=== PATIENT | female | born 1955 | race Caucasian/White ===

== ENCOUNTER 2023-05-21 08:53 | Outpatient (REF) | payer MEDICARE, SELFPAY ==
--- NOTE | ~2023-05-21 | XR_ITS ---
EXAMINATION: XR CERVICAL SPINE CLINICAL INFORMATION: Cervical radiculopathy COMPARISON: None available. TECHNIQUE: 4 views of the cervical spine including flexion and extension lateral views were obtained. FINDINGS: There is straightening of cervical lordosis with narrowing of C4-C5, C5-C6, C6-C7 intervertebral disc spaces and marginal spurring. There is no instability on flexion and extension views. There is uncovertebral osteophytosis more prominent in the level of C5-C6. Soft tissues unremarkable. XR/XR cervical spine 4V IMPRESSION: Multilevel degenerative changes in cervical spine without evidence of instability.
== END 2023-05-21 08:54 | disposition home or self-care (01) ==
LOC: HO.HOSX 08:53
PROVIDERS: PCP Nurse Practitioner Family; Visit Provider Neurological Surgery
DX: M54.12 Radiculopathy, cervical region (principal)
CPT/HCPCS: 72050; 99212

== ENCOUNTER 2023-05-21 08:53 | Outpatient (AMB) | payer MEDICARE, SELFPAY ==
--- NOTE | 2023-05-21 09:22 | A.SPINEOV_ITS ---
Intake Intake Visit Reasons: Neck pain Intake Note: Mrs. Gipson is here today c/o neck pain s/p fall. MRI done @ [facility]. [employer] Est[employer] Required: No Assessment & Plan Assessment & Plan (1) Cervical radiculopathy: Code(s): M54.12 - Radiculopathy, cervical region Plan Dear Dr. Mcelroy, Thank you for referring Amanda to our office today. She is a pleasant 68-year-old female who comes in today with a chief complaint of left-sided posterior neck pain with radiation into the left upper extremity. She states that the inciting incident of this pain occurred roughly 1 month ago when she had which she refers to as a ?mini seizures/mini stroke? during which she attempted to stand up from a seated position after sitting on her couch for a prolonged period of time and ?blacked out hit a nearby table and fell on the ground. She states that this is not uncommon for her and that she is followed by Neurology for this issue. When describing her pain/radiation of symptoms it is difficult for her to delineate exactly where the pain/radiation occurs. It seems that she has fairly diffuse radiation of pain in the proximal half of her left upper extremity. In addition, she has tingling in her hands for many years, predominantly affecting the left 1st 3 phalanges. She states that she does not want to go to physical therapy and is not interested in having injections at this time. PMH: High blood pressure, ulcerative colitis, many strokes/seizures, osteoarthritis, breast cancer with R sided tumor resection, hysterectomy, cholecystectomy, unspecified knee surgery. Social hx: Patient does not smoke, reports no substance use. Medications: Alendronate, fluticasone, cetirizine, Humira, lisinopril, clopi dogrel, levothyroxine, duloxetine, pantoprazole, Depakote. Allergies: Aspirin, penicillin, latex. Physical exam: Mobility / function: Patient ambulates well, can rise from a seated position without difficulty. Sensation: Grossly intact. CN: II-XII grossly intact. Strength Testing Upper Extremities: - Deltoid 5/5 right 5/5 left - Biceps 5/5 right 5/5 left - Triceps 5/5 right 5/5 left - Wrist Ext 5/5 right 5/5 left - Wrist Flex 5/5 right 5/5 left - Hand performing arts technicians 5/5 right 5/5 left - Interossei 5/5 right 5/5 left Patient is able to elicit full strength but has to push through pain to get to 5/5 strength on L side. Strength Testing Lower Extremities: - Hip flexion 5/5 right 5/5 left - Knee extension 5/5 right 5/5 left - Dorsiflexion 5/5 right 5/5 left - Plantar flex 5/5 right 5/5 left - EHL 5/5 right 5/5 left Reflexes: - Biceps Right - 2+ Left - 2+ - Triceps Right - 2+ Left - 2+ - Patellar Right - 2+ Left - 2+ - Achilles Right - 2+ Left - 2+ - Plantar Right - 2+ Left - 2+ (-) Lhermitte's (-) Spurling's (-) Babinski (-) Donohue?s sign (-) Clonus Imaging review: MRI from February 2023 performed [facility]: The patient has diffuse degenerative disc disease of the cervical spine. She has severe foraminal narrowing most severe on the left side at C5-6, but this is also present at a lesser degree at C3-4 and C6-7. X-rays of the cervical spine were also ordered to evaluate for any instability, none was seen on imaging. Impression: Amanda is a pleasant 68-year-old female comes in today with acute onset neck and left upper extremity pain after a fall 1 month ago. She states she has had persistent pain on the left posterior aspect of her neck and down her left upper extremity terminating in the 1st 3 digits of the left hand. On imaging review it seems that she has bone spurs that are impinging the left- sided foramen of the exiting nerve roots at the above discussed levels. She was seen alongside Dr. Oakes who offered her a C5-6 and C6-7 ACDF based on her clinical symptoms. We discussed her current medication regimen and she was advised to stop her Humira and may restart it after surgery (half life roughly 15 days, surgery roughly 45 days out, will need at least 3 half lives before surgery). We also discussed stopping her anticoagulation medication at least 3 days before surgery, she is encouraged to discuss this with her primary care physician neurologist before stopping due to her history of TIAs/seizures. Amanda was given risk and benefits of surgery including but not limited to infection, hematoma, nerve injury, durotomy, weakness, trachea/esophagus injury, persistent pain, difficulty swallowing/speaking as well as the option to continue with conservative treatment and patient wishes to proceed with surgery. She is aware they should stop all NSAIDs 7 days prior to surgery. All questions were answered to the best of our ability. If there is anything about this patients medical history that we have overlooked or concerns you have about us proceeding with surgery we would appreciate any input you can offer. Thank you for allowing us to care for your patient. The total time spent with this visit with this patient was 60 minutes reviewing history, physical exam, MRI cervical spine imaging review, and implementation of treatment plan or further diagnostic testing Pravin Oakes MD,PhD [facility] Orders: Orders XR cervical spine 4V Today M54.12 - Radiculopathy, cervical region Coding Level of Care Code Est Pt Level 5 (96142) Diagnoses Cervical radiculopathy M54.12
== END 2023-05-21 10:17 | disposition home or self-care (01) ==
PROVIDERS: PCP Nurse Practitioner Family; Visit Provider Neurological Surgery
DX: M54.12 Radiculopathy, cervical region (principal)
CPT/HCPCS: 99215

== ENCOUNTER 2023-07-10 08:27 | Day surgery (SDC) | payer MEDICARE, SELFPAY ==
--- NOTE | 2023-06-27 | ECG_ITS ---
Test Reason : preop Blood Pressure : / mmHG Vent. Rate : 078 BPM Atrial Rate : 078 BPM P-R Int : 178 ms QRS Dur : 072 ms QT Int : 390 ms P-R-T Axes : 025 017 042 degrees QTc Int : 444 ms Normal sinus rhythm Normal ECG No previous ECGs available Referred By: Britany Salinas Electronically Signed By:MEAGHAN SERRANO MD
[2023-06-27 12:19] VITALS: BP 111/56; PULSE 92; RESP 20; O2SAT 98; BMI 34.4
--- NOTE | 2023-06-27 12:34 | HO.ANESPROP2 ---
Documented by User: Britany Salinas NP 07/08/23 14:21 HPI - Anesthesia Eval Consult details Narrative: 68yo F for C5-6,C6-7 Ant Cerv Discectomy w/ fusion, 07/10/23 No recent illness No CP/SOB Plavix for hx TIA. OK to hold per prescriber. Seizures . Last 02/2023 with med change. Per neuro note, seizure vs migraine vs syncope. EEG 05/2022 negative. Per pt, able to feel pre-seizure coming and prevent. Chronic sinus congestion with PND. OTC allergy Chronic low Na. Last 06/23/23 @ 131. Follows renal, last seen 05/27/23. Unclear etiology without taking pt off diuretics, but because Na always >130, follow labs without changes. S/P R mastectomy PMFSH Active Problems Active Problems: All Active Problems (Updated 06/27/23 @ 12:10 by Colleen Hwang RN) Cervical radiculopathy (Acute) Past Medical History Medical History (Updated 06/27/23 @ 12:10 by Colleen Hwang RN) Migraine Uterine cancer Fibromyalgia Depression Hyponatremia Breast cancer, right Osteoarthritis Seizures TIA (transient ischemic attack) Ulcerative colitis HTN (hypertension) Family History Family history of problems with anesthesia: No Surgical History Surgical History (Updated 06/27/23 @ 12:12 by Colleen Hwang RN) Hx of right mastectomy Hx of knee surgery Hx of cholecystectomy Hx of hysterectomy History of lumpectomy of right breast History of Problems with Anesthesia: No Social History Household Members Other:: none-neighbors & friend assist if needed Are you a primary primary care sales representative to a significant other at home: No Do you presently have visiting nurse or other home services: No Patient Tobacco Use Status: Former Tobacco user Quit Date: 1991 Tobacco use type: Cigarette Meds Allergies Allergy/AdvReac Type Severity Reaction Status Date / Time aspirin Allergy Intermediate Vomiting Verified 06/27/23 12:13 Latex, Natural Rubber Allergy Intermediate Itching Verified 06/27/23 12:13 Penicillins [PCN] Allergy Intermediate Rash/fever Verified 06/27/23 12:13 Sulfa (Sulfonamide Allergy Intermediate Itching/sheeba Verified 06/27/23 12:13 Antibiotics) sea Home Medications Medication Instructions Recorded Confirmed Last Taken Type alendronate 70 mg tablet 70 mg PO QWEEK 06/26/23 06/27/23 07/07/23 History clopidogrel 75 mg tablet 75 mg PO QAM 06/26/23 06/27/23 07/05/23 History cyanocobalamin (vitamin B-12) 100 100 mcg PO QAM 06/26/23 06/27/23 07/09/23 History mcg tablet (Vitamin B-12) duloxetine 60 mg capsule,delayed 60 mg PO QAM 06/26/23 06/27/23 07/10/23 History release levothyroxine 88 mcg tablet 88 mcg PO QAM 06/26/23 06/27/23 07/10/23 History lisinopril 30 mg tablet 30 mg PO QAM 06/26/23 06/27/23 07/09/23 History lysine 500 mg tablet (L-Lysine) 500 mg PO QAM 06/26/23 06/27/23 07/09/23 History multivitamin 1 tab PO QAM 06/26/23 06/27/23 07/09/23 History mupirocin 2 % topical ointment 1 appl topical TID 06/26/23 06/27/23 07/09/23 History pantoprazole 40 mg tablet,delayed 40 mg PO QAM 06/26/23 06/27/23 07/10/23 History release triamcinolone acetonide 0.1 % 1 appl topical BID 06/26/23 06/27/23 07/09/23 History topical cream calcium carbonate 600 mg-vitamin 1 tab PO QAM 06/27/23 06/27/23 07/09/23 History D3 5 mcg (200 unit) tablet cetirizine 10 mg tablet 10 mg PO QAM 06/27/23 06/27/23 07/09/23 History divalproex 250 mg tablet,extended 250 mg PO BEDTIME 06/27/23 06/27/23 07/09/23 History release 24 hr triamterene 37.5 0.5 tab PO QAM 06/27/23 06/27/23 07/09/23 History mg-hydrochlorothiazide 25 mg tablet Exam Exam Date and Time: June 27, 2023 1234 Height,Weight and Vital Signs: Height 5 ft 1 in Weight 82.554 kg Last Vital Signs Pulse 92 06/27/23 12:19 Resp 20 06/27/23 12:19 BP 111/56 L 06/27/23 12:19 Pulse Ox 98 06/27/23 12:19 O2 Del Method Room Air 06/27/23 12:19 Pertinent Lab Results Pertinent Lab Results: From outside facility: CMP 06/23/23 Na 131 (L) K 4.6 Cl 94 (L) Bicarb 28 Bun 13 Creat 0.9 Liver profile WNL CBC 06/23/23 all WNL Narrative Narrative: EKG 06/2023 Vent. Rate : 078 BPM Atrial Rate : 078 BPM P-R Int : 178 ms QRS Dur : 072 ms QT Int : 390 ms P-R-T Axes : 025 017 042 degrees QTc Int : 444 ms Normal sinus rhythm Normal ECG No previous ECGs available Airway Mallampati Class: III TM Dist: >3cm Neck ROM: Limited Denture: Upper Loose/Missing/Broken Teeth: No (bottom teeth intact) Heart: RRR Lungs: CTAB Assessment and Plan Assessment Anesthesia Assessment: Anesthesia Plan Discussed and PAT Visit Final Anesthetic Review Family History of Problems with Anesthesia: No History of Problems with Anesthesia: No Documented by User: Murray Escobar MD 07/17/23 16:49 PMFSH Past Medical History Medical History (Updated 06/27/23 @ 12:10 by Colleen Hwang RN) Migraine Uterine cancer Fibromyalgia Depression Hyponatremia Breast cancer, right Osteoarthritis Seizures TIA (transient ischemic attack) Ulcerative colitis HTN (hypertension) Surgical History Surgical History (Updated 06/27/23 @ 12:12 by Colleen Hwang RN) Hx of right mastectomy Hx of knee surgery Hx of cholecystectomy Hx of hysterectomy History of lumpectomy of right breast Social History Household Members Other:: none-neighbors & friend assist if needed Are you a primary primary care sales representative to a significant other at home: No Do you presently have visiting nurse or other home services: No Patient Tobacco Use Status: Former Tobacco user Quit Date: 1991 Tobacco use type: Cigarette Meds Allergies Allergy/AdvReac Type Severity Reaction Status Date / Time aspirin Allergy Intermediate Vomiting Verified 06/27/23 12:13 Latex, Natural Rubber Allergy Intermediate Itching Verified 06/27/23 12:13 Penicillins [PCN] Allergy Intermediate Rash/fever Verified 06/27/23 12:13 Sulfa (Sulfonamide Allergy Intermediate Itching/sheeba Verified 06/27/23 12:13 Antibiotics) sea Home Medications Medication Instructions Recorded Confirmed Last Taken Type alendronate 70 mg tablet 70 mg PO QWEEK 06/26/23 06/27/23 07/07/23 History clopidogrel 75 mg tablet 75 mg PO QAM 06/26/23 06/27/23 07/05/23 History cyanocobalamin (vitamin B-12) 100 100 mcg PO QAM 06/26/23 06/27/23 07/09/23 History mcg tablet (Vitamin B-12) duloxetine 60 mg capsule,delayed 60 mg PO QAM 06/26/23 06/27/23 07/10/23 History release levothyroxine 88 mcg tablet 88 mcg PO QAM 06/26/23 06/27/23 07/10/23 History lisinopril 30 mg tablet 30 mg PO QAM 06/26/23 06/27/23 07/09/23 History lysine 500 mg tablet (L-Lysine) 500 mg PO QAM 06/26/23 06/27/23 07/09/23 History multivitamin 1 tab PO QAM 06/26/23 06/27/23 07/09/23 History mupirocin 2 % topical ointment 1 appl topical TID 06/26/23 06/27/23 07/09/23 History pantoprazole 40 mg tablet,delayed 40 mg PO QAM 06/26/23 06/27/23 07/10/23 History release triamcinolone acetonide 0.1 % 1 appl topical BID 06/26/23 06/27/23 07/09/23 History topical cream calcium carbonate 600 mg-vitamin 1 tab PO QAM 06/27/23 06/27/23 07/09/23 History D3 5 mcg (200 unit) tablet cetirizine 10 mg tablet 10 mg PO QAM 06/27/23 06/27/23 07/09/23 History divalproex 250 mg tablet,extended 250 mg PO BEDTIME 06/27/23 06/27/23 07/09/23 History release 24 hr triamterene 37.5 0.5 tab PO QAM 06/27/23 06/27/23 07/09/23 History mg-hydrochlorothiazide 25 mg tablet Exam Airway Loose/Missing/Broken Teeth: Yes Assessment and Plan Assessment Anesthesia Assessment: Chart Reviewed Final Anesthetic Review NPO: Yes ASA Class: IV Final Preanesthetic Review: Meds/Allgs Chart Reviewed, Consent Obtained/Reviewed and Anes Risks/Benef Reviewed Patient Risk: High Procedure Risk: Intermediate Anesthetic Plan Anesthetic Plan: GA and Agree w/ Assess. and Plan Disposition: Standard PACU
[2023-07-10] VITALS (14 sets, daily range): BP systolic 101–130; BP diastolic 51–67; PULSE 88–98; RESP 14–20; TEMP 36.1–36.8; O2SAT 94–100; BMI 33.7
--- NOTE | ~2023-07-10 | FL_ITS ---
EXAMINATION: XR FLUOROSCOPY WITH IMAGES CLINICAL INFORMATION: C5 through C7 anterior cervical disc with fusion. COMPARISON: None available. TECHNIQUE: Fluoroscopy Supervised By: Dr. Geovanny Oakes. Fluoroscopy Time: 0.1 minute. Cumulative Dose: 2.98 mGy. DAP: 0.698 Gycm2. Images: 2. FINDINGS: New surgical hardware from [facility] at C5-C6 and C6-C7. FL/FL guidance in OR IMPRESSION: Fluoroscopy guidance for cervical spine surgery.
--- NOTE | 2023-07-10 07:02 | MHC.SHP ---
Pre-Procedural Eval Section A Date of Service: 07/10/23 Section B Chief Complaint: Radiculopathy, cervical region Allergies: Allergies Allergy/AdvReac Type Severity Reaction Status Date / Time aspirin Allergy Intermediate Vomiting Verified 06/27/23 12:13 Latex, Natural Rubber Allergy Intermediate Itching Verified 06/27/23 12:13 Penicillins [PCN] Allergy Intermediate Rash/fever Verified 06/27/23 12:13 Sulfa (Sulfonamide Allergy Intermediate Itching/sheeba Verified 06/27/23 12:13 Antibiotics) sea Review of Systems Sugical H&P ROS: Negative: Constitution, Cardiovascular, Respiratory, Neurological, Psychiatric, Hem-Onc, Allergic/Immunologic, Gastrointestinal, Genitourinary, Musculoskeletal, Integumentary, Endocrine and Eyes/Ears/Nose/Throat Exam Surgical H&P Exam: Not Evaluated: HEENT, Not Evaluated: Heart, Not Evaluated: Lungs, Not Evaluated: Extremities, Not Evaluated: Abdomen, Not Evaluated: Skin and Not Evaluated: Neurological Plan Diagnosis/Plan: Unchanged I have reviewed the history and physical and performed a pertinent physical examination on my patient. No changes have occurred unless specified. Plan remains the same, C5-6, C6-7 ACDF Time Spent With Patient Time: Total time managing care of this patient today __10__ minutes.
[2023-07-10] MEDS: methocarbamoL 750 MG TABLET PO (09:10)
[2023-07-10] MEDS: Lactated Ringers 1,000 ML 100 ML IVCONT (09:10)
[2023-07-10] MEDS: Gabapentin 300 MG CAPSULE PO (09:11)
[2023-07-10] MEDS: vancomycin HCL 1,500 MG in 0.9 % Sodium Chloride 500 ML 333.33 MG IV (09:28)
[2023-07-10] MEDS: Acetaminophen 1,000 MG/100 ML PIGGYBACK 400 MG IV (11:00)
--- NOTE | 2023-07-10 12:46 | PM.DS ---
DS: Providers Provider Date of Service: 07/10/23 Primary care physician: Unknown Physician DS: Summary Time Attestation Discharge coordination time: Less than 30 minutes Quality: Safe Use of Opioids Does Pt have an Active Cancer Diagnosis on the Problem List?: No Quality: Stroke Does the patient have a stroke diagnosis?: No Physical Exam Vital Signs: Vital Signs: Last Vital Signs Temp 98.3 F 07/10/23 08:50 Pulse 88 07/10/23 08:50 Resp 20 07/10/23 08:50 BP 117/61 07/10/23 08:50 Pulse Ox 97 07/10/23 08:50 O2 Del Method Room Air 07/10/23 08:50 BMI result Body Mass Index 33.7 DS: Data Data Completed and Pending Labs on day of discharge: Laboratory Results - last 24 hr 07/10/23 10:11 Blood Type A Positive Antibody Screen NEGATIVE Discharge Plan Discharge Patient Disposition: Home, Self-Care Referrals: Physician,Unknown J [Primary Care Provider] - 1 Week Discharge Medications: New oxycodone 5 mg tablet 5 mg PO Q8H PRN (Reason: severe pain (scale score 7-10)) Qty: 30 0RF Rx Instructions: Partial Fill upon patient request. Continued multivitamin Tablet 1 tab PO QAM cyanocobalamin (vitamin B-12) [Vitamin B-12] 100 mcg Tablet 100 mcg PO QAM alendronate 70 mg tablet 70 mg PO QWEEK tramadol 50 mg Tablet 50 mg PO BID PRN (Reason: Pain) triamcinolone acetonide 0.1 % cream 1 appl topical BID levothyroxine 88 mcg tablet 88 mcg PO QAM pantoprazole 40 mg tablet,delayed release (DR/EC) 40 mg PO QAM lisinopril 30 mg tablet 30 mg PO QAM mupirocin 2 % ointment 1 appl topical TID lysine [L-Lysine] 500 mg Tablet 500 mg PO QAM duloxetine 60 mg capsule,delayed release(DR/EC) 60 mg PO QAM cetirizine 10 mg tablet 10 mg PO QAM calcium carbonate-vitamin D3 600 mg-5 mcg (200 unit) Tablet 1 tab PO QAM divalproex 250 mg tablet extended release 24 hr 250 mg PO BEDTIME triamterene-hydrochlorothiazid 37.5-25 mg tablet 0.5 tab PO QAM Held clopidogrel 75 mg tablet 75 mg PO QAM Hold Instructions: Resume on 07/15/23. Discharge Orders: Discharge Order (Routine); Ordered 07/10/23 Ordered By: Pravin Mckeon Diet: Advance to usual diet Activity on Discharge: As tolerated Activity Restrictions/Additional Instructions: After your spinal surgery we ask you to observe the following restrictions/guidelines: Activity: With lumbar fusion surgery it is normal to have days in the first couple of weeks where you have increased leg pain. This usually lasts 1-2 days and self resolves with the continuation of medication. Attempt to stay mobile and continue activity as tolerated. It is normal to feel some discomfort as you increase your activity, but that will improve with time. We ask you avoid heavy lifting or activities that cause pain. As a general rule, 8lbs is a safe limit for lifting right after surgery. Walk as much as you feel comfortable but not to exhaustion. You will feel extra tired the first few days after surgery. Stay well hydrated. It is OK to walk up and down stairs You may return to driving when you are off narcotics (such as vicodin, oxycodone, dilaudid, etc), and you are back to normal functional capacity. If you have any concerns please check with office before driving. Return to work is specific to each patient and each surgery, so please speak with your doctor/PA at first follow up. Please bring paperwork such as FMLA at that time if you need it filled out. Medications: It is recommended that you take Tylenol 500 mg every 4 hours for the 1st week postoperatively, alongside ibuprofen 600 mg every 8 hours. We will also be prescribing gabapentin 300 mg to be taken every 8 hours for the 1st month postoperatively. We will give you a short supply of narcotics after surgery (usually one weeks worth). Please use this for breakthrough pain that is refractory to the Tylenol ibuprofen and gabapentin. If you need more please call the office but do not use more than prescribed. You will need to give our office 48 hours notice if you need narcotics refilled and we do not fill narcotics on weekends or evenings. If you are on a narcotic, it is a good idea to take a stool softener such as colace or senna to avoid constipation If you take blood thinner such as aspirin, Plavix, Coumadin, Effient, Eliquis etc for conditions such as Afib, DVT, Pulmonary embolus, coronary disease, stents etc please speak with your surgeon about specific details as to when you can resume these medications. You can resume NSAIDs on post op day 1 (eg: Motrin, Naproxen, etc). Follow up: Please call the office, , after surgery to arrange a 3 week follow up for wound check. Wound Care: You may remove your dressing on the first day after surgery. You may leave open to air. Please do not remove the steri strips underneath. they will fall off on their own in one week. IT IS NORMAL FOR THE WOUND TO OOZE OR BE BLOODY FOR A FEW DAYS AFTER SURGERY. IF THIS HAPPENS JUST PLACE NEW DRESSING OVER IT TO AVOID STAINING CLOTHES. You may shower on post op day # 1 We ask that you do not let the water soak the wound. If it does get wet, just towel dry lightly. Please do not scrub your incision or place any type of chemical/ointment on the wound. No tub baths, pools or jacuzzis for one month. If you have any leaking or redness from your wound, or fevers, please call office
--- NOTE | 2023-07-10 12:50 | P.OP_ITS ---
Operative Note Operative Note Date of Service: 07/10/23 Narrative: Preoperative Diagnosis: neck pain and left cervical radiculopathy Procedure: C5-6, C6-X5Kjeluckr discectomy, arthrodesis and implantation cage ; C5-C7 anterior instrumentation ; local autograft; microscope Informed Consent was obtained for this operation. I have explained the nature, purpose and benefits of the operation. I have discussed the risks and benefit of the operation including possible complications or adverse events with patient/family. Alternative(s) were discussed with the patient with their relative benefits and risks as well as the consequences of not accepting the operation were included in obtaining consent. Surgeon: RAFFAELE LI MD, PHD Procedure Assisted By: MORAIMA Mendoza Description of Procedure: This 68 female is suffering from neck pain left-sided arm pain. MRI shows mu ltilevel degenerative disc disease C5-6 and C6-7 with foraminal stenosis at these levels. The procedure complications were explained. The patient was consented. The patient was brought to the operating room and endotracheally intubated. The patient was put in supine position with slight extension of the neck. Prep and drape was done followed by timeout. A mid cervical incision was made followed by opening of the platysma. The prevertebral fascia was reached following the natural planes while the physician periodicals library assistant provided manual retraction. The prevertebral fascia was opened to expose the disc space. A spinal needle was placed in the disk space to confirm the correct level with xray. The longus colli muscles were released bilaterally and a self retaining retractor was inserted. Two large anterior osteophytes were resected from C5-6 and C6-7 saved for autograft. An initial diskectomy was done of C5-6 and C6- C7.Two [place] pins were placed in the C5-6 vertebral bodies and distraction was given over the interspace. The discectomy was completed toward the posterior annulus of the disc. The microscope was brought in. The remainder of the discectomy was completed. The posterior ligament was opened and resected to expose the underlying dura. Osteophytes were resected from the body of C5 and C6 and saved for autograft. Bilateral foraminotomies were done. Significant foraminal stenosis was present for the left C6 foramen. The endplates were prepared after which a 6 mm cage filled with autograft was inserted into the disc space. A separate attached plate was locked down with 2 x 14 mm screws as anterior instrumentation. then attention was turned to the C6-C7 disc space. Distraction was given over the interspace. The diskectomy was completed after which the PLL was opened and resected to expose the underlying dura. A bilateral foraminotomy was done with removal of several osteophyte compressing the exiting nerve roots. The endplates were prepared after which a 6 mm cage filled with autograft was inserted into the disc space. A separate attached plate was locked down with 2 x 14 mm screws as anterior instrumentation. Final x-rays in AP and lateral projection showed a satisfactory position of the implants and anterior instrumentation. The physician periodicals library assistant took over. The [place] pin was removed. Hemostasis was done. He closed the incision in 2 layers with a 3-0 Vicryl. Steri-Strips used to approximate incision. An OpSite with Tegaderm was used to cover the incision. All sponge and needle counts were correct. Patient was extubated and transported in stable is to recovery room. Anesthesia: General Estimated Blood Loss (ml): 10 mL Duration of Surgery: 90 minutes Postoperative Plan: Discharge home Complications: None
[2023-07-10] MEDS: fentaNYL citrate/PF 100 MCG/2 ML VIAL 25 MCG IVPUSH ×2 (13:05→13:15)
--- NOTE | 2023-07-10 13:46 | PHA.MEDREC ---
Pharmacy Consult ? Medication Reconciliation Pharmacy has completed the medication reconciliation.pharmacy has reviewed med rec done by nursing
--- NOTE | 2023-07-10 17:28 | PC.NURSE ---
Pts ride cannot be here for another 45 mins to an hour. Meal tray ordered.
== END 2023-07-10 18:23 | disposition home or self-care (01) ==
PROVIDERS: Visit Provider Neurological Surgery
PROC: (CPT 22551; principal; 2023-07-10 10:30)
DX: M54.12 Radiculopathy, cervical region (principal); M50.322 Other cervical disc degeneration at C5-C6 level; M50.323 Other cervical disc degeneration at C6-C7 level; R20.2 Paresthesia of skin; R56.9 Unspecified convulsions; Z91.81 History of falling; I10 Essential (primary) hypertension; Z85.3 Personal history of malignant neoplasm of breast; Z79.620 Long term (current) use of immunosuppressive biologic; Z79.899 Other long term (current) drug therapy; Z88.0 Allergy status to penicillin; Z88.8 Allergy status to other drugs, medicaments and biological substances; Z91.040 Latex allergy status; Z98.890 Other specified postprocedural states; Z87.891 Personal history of nicotine dependence
CPT/HCPCS: 22551; 22552; 22853; 20936; 22845; 86850; 86900; 86901; 93005; C1713; J0131; J1100; J1170; J2250; J2704; J3010; J3371

== ENCOUNTER → 2023-07-10 08:27 | Outpatient (BNV) | payer MEDICARE, SELFPAY | PROVIDERS: Visit Provider Physician Assistant | DX: M54.12 Radiculopathy, cervical region (principal) | CPT/HCPCS: 20936; 22551; 22552; 22845; 22853; 99499 ==

== ENCOUNTER 2023-08-01 12:32 | Outpatient (AMB) | payer MEDICARE, SELFPAY ==
--- NOTE | 2023-08-01 13:18 | A.SPINEOV_ITS ---
Intake Intake Visit Reasons: 1st post op Allergies aspirin Allergy (Intermediate, Verified 06/27/23 12:13) Vomiting Latex, Natural Rubber Allergy (Intermediate, Verified 06/27/23 12:13) Itching Penicillins [PCN] Allergy (Intermediate, Verified 06/27/23 12:13) Rash/fever Sulfa (Sulfonamide Antibiotics) Allergy (Intermediate, Verified 06/27/23 12:13) Itching/nausea Assessment & Plan Assessment & Plan (1) Cervical radiculopathy: Code(s): M54.12 - Radiculopathy, cervical region Plan Procedure: C5-6, C6-C7 ACDF Amanda comes in today for her 1st postoperative visit. She reports she is very satisfied with the surgery and feels much better than she did preoperatively. The patient reports she is up walking around and completing the majority of her ADLs. She does still reports some posterior neck pain/twinging in her neck, but this is expected as a result of postoperative inflammation. She reports that she still takes acetaminophen daily. No neurological deficits. Patient is able to ambulate well, rises from a seated position without difficulty. Incision sites are closed, well healing, with no signs of drainage. We will follow-up with the patient in 6 weeks for his 2nd postoperative visit. At that time we will get x-rays to review with the patient. Pravin Oakes MD,PhD [facility] Coding Level of Care Code Global (66887) Diagnoses Cervical radiculopathy M54.12
== END 2023-08-01 13:18 | disposition home or self-care (01) ==
PROVIDERS: Visit Provider Physician Assistant
DX: M54.12 Radiculopathy, cervical region (principal)
CPT/HCPCS: 99024

== ENCOUNTER 2023-08-01 12:32 | Outpatient (REF) | payer MEDICARE, SELFPAY | END 2023-08-01 12:33 | disposition home or self-care (01) | LOC: HO.HOSX 12:32 | PROVIDERS: Visit Provider Physician Assistant | DX: M54.12 Radiculopathy, cervical region (principal) | CPT/HCPCS: 99212 ==

== ENCOUNTER 2023-09-12 12:41 | Outpatient (REF) | payer MEDICARE, SELFPAY ==
--- NOTE | ~2023-09-12 | XR_ITS ---
EXAMINATION: XR CERVICAL SPINE CLINICAL INFORMATION: Cervical radiculopathy COMPARISON: 05/21/2023 TECHNIQUE: 4 views of the cervical spine were obtained inclusive of flexion and extension views. FINDINGS: There is straightening/minimal reversal of normal cervical lordosis. Interval C5-C6 and C6-C7 surgical stabilizing hardware appears appropriately positioned. Multilevel degenerative changes including C4-C5 disc space narrowing with anterior bridging osteophyte and facet hypertrophic changes. Odontoid is obscured. No prevertebral soft tissue swelling seen. On neutral view, trace anterolisthesis C3 on C4 is unchanged on flexion and extension views. Calcification adjacent to the C7 spinous process. Lung apices are clear. XR/XR cervical spine 4V IMPRESSION: Cervical lordotic straightening/minimal reversal. Interval C5-C6 and C6-C7 surgical hardware. Persistent C4-C5 disc space narrowing. Flexion-extension views as described.
== END 2023-09-12 12:42 | disposition home or self-care (01) ==
LOC: HO.HOSX 12:41
PROVIDERS: Visit Provider Physician Assistant
DX: M54.12 Radiculopathy, cervical region (principal); Z09 Encounter for follow-up examination after completed treatment for conditions other than malignant neoplasm
CPT/HCPCS: 72050; 99212

== ENCOUNTER 2023-09-12 12:43 | Outpatient (AMB) | payer MEDICARE, SELFPAY ==
--- NOTE | 2023-09-12 13:01 | A.OFFVIS_ITS ---
Intake Intake Visit Reasons: 2nd post op with xrays Intake Note: Pt here for her 2nd post op with Xrays Employee Development Specialist Required: No Allergies aspirin Allergy (Intermediate, Verified 06/27/23 12:13) Vomiting Latex, Natural Rubber Allergy (Intermediate, Verified 06/27/23 12:13) Itching Penicillins [PCN] Allergy (Intermediate, Verified 06/27/23 12:13) Rash/fever Sulfa (Sulfonamide Antibiotics) Allergy (Intermediate, Verified 06/27/23 12:13) Itching/nausea PFSH Medical History (Updated 06/27/23 @ 12:10 by Colleen Hwang RN) Migraine Uterine cancer Fibromyalgia Depression Hyponatremia Breast cancer, right Osteoarthritis Seizures TIA (transient ischemic attack) Ulcerative colitis HTN (hypertension) Surgical History (Updated 06/27/23 @ 12:12 by Colleen Hwang RN) Hx of right mastectomy Hx of knee surgery Hx of cholecystectomy Hx of hysterectomy History of lumpectomy of right breast Social History Household Members Other:: none-neighbors & friend assist if needed Are you a primary manager medicare to a significant other at home: No Do you presently have visiting nurse or other home services: No Comment: uses cane for balance if needed Patient Tobacco Use Status: Former Tobacco user Quit Date: 1991 Tobacco use type: Cigarette Assessment & Plan Assessment & Plan (1) Cervical radiculopathy: Code(s): M54.12 - Radiculopathy, cervical region Plan Procedure: C5-6 & C6-7 ACDF Amanda comes in today for her 2nd postoperative visit. She reports continued resolution of symptoms. She states that she has not fallen at all since surger y. She also almost never gets episodes of dizziness. She states she is continuing to heal well, and has been back to her activities of daily living. She reports yesterday she was playing bingo, was able to come back home and do some chores including washing the dishes, and had no significant concerning symptoms or issues. This is reassuring for continued symptom resolution and healing course. We reviewed her cervical x-ray and noted stable placement of cage and instrumentation at C5-6 and C6-7. No neurological deficits. Patient is able to ambulate well, rises from a seated position without difficulty. Incision site is closed, well healing and beginning to flat out into the skin folds. There is no need for continued routine follow-up with the patient, I recommend she continue to follow-up with her neurologist Dr. Zheng. Pravin Oakes MD,PhD [facility] Coding Level of Care Code Global (02239) Diagnoses Cervical radiculopathy M54.12
== END 2023-09-12 13:15 | disposition home or self-care (01) ==
PROVIDERS: PCP Nurse Practitioner Family; Visit Provider Physician Assistant
DX: M54.12 Radiculopathy, cervical region (principal)
CPT/HCPCS: 99024

== ENCOUNTER 2025-06-20 13:58 | Outpatient (AMB) | payer MEDICARE, SELFPAY ==
--- NOTE | 2025-06-20 14:24 | MHC.OFFVIS ---
Intake Visit Reasons: TIA (cardiology) HPI Comments Details: 60 yo RH woman with chronic depression, FRANCHESKA on CPAP, cervical spine surgery in 2022, and seizure disorder. She used to see Dr. Zheng and said that he has done multiple tests including brain scans and EEG. Her present complaints were headaches that were sporadic almost always on the right side in frontal area, sharp, and lasting for about half an hour. She was treating headaches with Tylenol. She used to have seizures which made her fall down and pass out. She said that since starting in the medicine she was not having those type of seizures but minor were probably happening which were making her unsteady. She complain of change in her speech stating that her speech was affected and this was affected after she had multiple ?mini strokes?. She has moved from [place] to this area recently. 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) use of antithrombotics/antiplatelets HTN (hypertension) Chronic sinusitis Acute seborrheic dermatitis Mild eczema Weakness Ulcerative colitis Tricuspid valve disorder Transient ischemic attack (TIA) FRANCHESKA (obstructive sleep apnea) Overweight Osteoporosis Chronic tension type headache Malignant neoplasm of breast (female) Major depression Magnetic resonance imaging of brain abnormal Ischemic stroke Impairment of balance Hypothyroidism (acquired) 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 Complain of fatigue, sleep problems and dizziness and malaise. HEENT:? Complain of hearing loss. Cardiovascular:?No chest pain, palpitations, orthopnea, PND, or leg swelling. Respiratory:?No cough, shortness of breath, wheezing, or hemoptysis. Gastrointestinal:? He is complaining of frequent urination and incontinence. Genitourinary:?No dysuria, frequency, incontinence, or hematuria. Musculoskeletal:? She is complaining of neck pain. Neurological:? She is complaining of difficulty speaking, memory problems, and weakness. Psychiatric:? Complain of anxiety and depression Endocrine:?No heat/cold intolerance, polydipsia, polyuria, or hair/skin changes. Hematologic/Lymphatic:?No easy bruising, bleeding, or lymphadenopathy. Integumentary (Skin):?No rash, lesions, itching, or color changes. Allergic/Immunologic:?No seasonal allergies, hives, or recurrent infections. Physical Exam Neuro Other: Mental Status: She is alert and awake with somewhat fast in an speech. Spontaneity and fluency is not diminished. Comprehension is intact. She is able to provide her previous history without any confusion. Cranial Nerves: CN II: Visual villegas full to confrontation, visual acuity intact. CN III, IV, : Pupils equal, round, reactive to light and accommodation. Extraocular movements are normal. CN V: Facial sensation is normal. CN VII: Facial movements symmetrical. CN VIII: Hearing intact to bedside conversation is normal. CN IX, X: Palate elevates symmetrically. CN XI: Shoulder shrug and head turn symmetrical. CN XII: Tongue midline without atrophy or fasciculations. Motor: Deep tendon reflexes are 1+. Gait is cautious. Extrapyramidal: Full facial expressions and blinking. No rigidity. Movements are appropriate with no tremor or abnormality. Speech: Somewhat fast, dysphasic Assessment & Plan Assessment & Plan (1) Seizure disorder: Code(s): G40.909 - Epilepsy, unspecified, not intractable, without status epilepticus Category: Medical (2) Migraine without aura: Code(s): G43.009 - Migraine without aura, not intractable, without status migrainosus Category: Medical Qualifiers: Intractability: not intractable Status migrainosus presence: without status migrainosus Qualified Code(s): G43.009 - Migraine without aura, not intractable, without status migrainosus Plan 70 years old woman who was here with complain of headaches, seizures, and difficulty speaking. She said that she had numerous ?mini strokes? and investigations by Dr. Zheng in [place]. Previous records were not available. As far as headaches were concerned, there were probably migraine. She was taking Depakote for seizure disorder and reported milder symptoms. As far as her speech was concerned, I did not see heart signs of aphasia or dysarthria. This type of speech sometime is noted in behavioral disorder. She was advised to bring CTA of her previous scans and an EEG was ordered. Orders: Orders EEG Routine Today G40.909 - Epilepsy, unspecified, not intractable, without status epilepticus, G43.009 - Migraine without aura, not intractable, without status migrainosus Coding Level of Care Code New Pt Level 5 (78300) Diagnoses Seizure disorder G40.909 Migraine without aura and without status migrainosus, not intractable G43.009 Intractability: not intractable Status migrainosus presence: without status migrainosus
== END 2025-06-20 15:18 | disposition home or self-care (01) ==
LOC: HO.HSM 13:59
PROVIDERS: PCP Nurse Practitioner Family; Visit Provider Psychiatry & Neurology Neurology
DX: G40.909 Epilepsy, unspecified, not intractable, without status epilepticus (principal); G43.009 Migraine without aura, not intractable, without status migrainosus
CPT/HCPCS: 99204

== ENCOUNTER → 2025-06-20 13:58 | Outpatient (BNVA) | payer MEDICARE, SELFPAY | PROVIDERS: PCP Nurse Practitioner Family; Visit Provider Psychiatry & Neurology Neurology | DX: G40.909 Epilepsy, unspecified, not intractable, without status epilepticus (principal); G43.009 Migraine without aura, not intractable, without status migrainosus; G47.33 Obstructive sleep apnea (adult) (pediatric); Z99.89 Dependence on other enabling machines and devices; F32.A Depression, unspecified | CPT/HCPCS: 99202 ==

== ENCOUNTER 2025-06-27 14:01 | Outpatient (AMB) | payer MEDICARE, SELFPAY ==
--- NOTE | 2025-06-27 14:05 | A.OFFVIS_ITS ---
Intake Visit Reasons: Ischemic stroke Allergies aspirin Allergy (Intermediate, Verified 06/21/25 12:59) Vomiting Latex, Natural Rubber Allergy (Intermediate, Verified 06/21/25 12:59) Itching Penicillins (PCN) Allergy (Intermediate, Verified 06/21/25 12:59) Rash/fever Sulfa (Sulfonamide Antibiotics) Allergy (Intermediate, Verified 06/21/25 12:59) Itching/nausea HPI Comments Details: 70 years old woman with h/o multilevel mid-cervical spondylytic stenosis that was treated by [facility] by Dr. Oakes, who was here with complain of headaches, seizures, and difficulty speaking. She said that she had numerous ?mini strokes? and investigations by Dr. Zheng in [place]. Previous records were not available. As far as headaches were concerned, there were probably migraine. She was taking Depakote for seizure disorder and reported milder symptoms. As far as her speech was concerned, I did not see heart signs of aphasia or dysarthria. This type of speech sometime is noted in behavioral disorder. She was advised to bring CTA of her previous scans and an EEG was ordered. [facility] Medical History (Updated 06/21/25 @ 12:59 by More Mary) Chronic bilateral low back pain without sciatica Primary osteoarthritis of left knee Fibromyalgia Impaired glucose tolerance SOB (shortness of breath) Chronic hyponatremia Decreased hearing of both ears assisted (current) use of antithrombotics/antiplatelets HTN (hypertension) Chronic sinusitis Acute seborrheic dermatitis Mild eczema Weakness Ulcerative colitis Tricuspid valve disorder Transient ischemic attack (TIA) FRANCHESKA (obstructive sleep apnea) Overweight Osteoporosis Chronic tension type headache Malignant neoplasm of breast (female) Major depression Magnetic resonance imaging of brain abnormal Ischemic stroke Impairment of balance Hypothyroidism (acquired) 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 Cataract Ataxia Migraine Uterine cancer Fibromyalgia Depression Hyponatremia Breast cancer, right Osteoarthritis Seizures TIA (transient ischemic attack) Ulcerative colitis HTN (hypertension) Surgical History (Updated 06/21/25 @ 12:59 by More Mary) Hx of cholecystectomy Hx of right mastectomy Hx of knee surgery Hx of cholecystectomy Hx of hysterectomy History of lumpectomy of right breast Social History (System 06/21/25 @ 12:59 by More Mary) Household Members Other:: none-neighbors & friend assist if needed Are you a primary geriatric personal care aide to a significant other at home: No Do you presently have visiting nurse or other home services: No Comment: uses cane for balance if needed Patient Tobacco Use Status: Former Tobacco user Tobacco use type: Cigarette Physical Exam Neuro Other: Mental Status: Alert and oriented to person, place, and time. Normal attention. Normal spontaneous speech, fluency, and comprehension. No obvious issues with mood and memory. Affect is appropriate. Cranial Nerves: CN II: Visual villegas full to confrontation, visual acuity intact. CN III, IV, : Pupils equal, round, reactive to light and accommodation. Extraocular movements are normal. CN V: Facial sensation is normal. CN VII: Facial movements symmetrical. CN VIII: Hearing intact to bedside conversation is normal. CN IX, X: Palate elevates symmetrically. CN XI: Shoulder shrug and head turn symmetrical. CN XII: Tongue midline without atrophy or fasciculations. Gait and Station: No obvious gait abnormality. No ataxia or instability. Extrapyramidal: Full facial expressions and blinking. No rigidity. Movements are appropriate with no tremor or abnormality. Speech: Normal; no dysarthria or tremor. Assessment & Plan Assessment & Plan (1) Seizure disorder: Code(s): G40.909 - Epilepsy, unspecified, not intractable, without status epilepticus Category: Medical (2) Migraine without aura: Code(s): G43.009 - Migraine without aura, not intractable, without status migrainosus Category: Medical Qualifiers: Status migrainosus presence: without status migrainosus Intractability: not intractable Qualified Code(s): G43.009 - Migraine without aura, not intractable, without status migrainosus Plan She was advised to get the CD for last brain MRI done in [place]. In the meantime her EEG scheduled for next week. Reports of imaging done in 2022 was reviewed. After that she had neck surgery. Brain MRI at that time revealed nonspecific mild microvascular ischemic changes. Coding Level of Care Code Est Pt Level 3 (51418) Diagnoses Seizure disorder G40.909 Migraine without aura and without status migrainosus, not intractable G43.009 Status migrainosus presence: without status migrainosus Intractability: not intractable
== END 2025-06-27 14:21 | disposition home or self-care (01) ==
PROVIDERS: PCP Nurse Practitioner Family; Visit Provider Psychiatry & Neurology Neurology
DX: G40.909 Epilepsy, unspecified, not intractable, without status epilepticus (principal); G43.009 Migraine without aura, not intractable, without status migrainosus
CPT/HCPCS: 99213

== ENCOUNTER → 2025-06-27 14:01 | Outpatient (BNVA) | payer MEDICARE, SELFPAY | PROVIDERS: PCP Nurse Practitioner Family; Visit Provider Psychiatry & Neurology Neurology | DX: G43.009 Migraine without aura, not intractable, without status migrainosus (principal) | CPT/HCPCS: 99212 ==

== ENCOUNTER 2025-07-18 14:59 | Outpatient (REF) | payer MEDICARE, SELFPAY ==
--- NOTE | 2025-07-18 17:14 | EEG_ITS ---
History: low back pain, osteoarthritis, Fibromyalgia, SOB,Chronic hyponatremia, Decreased hearing,HTN, sinusitis, dermatitis, eczema,weakness,ulcerative colitis,Tricuspid valve disorder,TIA, FRANCHESKA Osteoporosis,Chronic tension type headache, Seizures, depression - pt c/o increased headaches on right side side in frontal region lasting hours, frequent falls- issues with speech - Neuro imaging not available Medication: Depakote Technical Description Photic Stimulation: Completed Hyperventilation: Omitted- TIAs Behavioral State: cooperative, pleasant, delay is speech was noted at times State of Consciousness: awake, brief drowsy Skull Defect: no Sedation: no Handedness: Right Duration: 33 mins 48 secs Cloud Developer Comments: during this study pt had intermittent shaking of right leg- pt states that her norm Last Meal: 9 pm Time / date of last symptom: 07/17/25 pt had a headache Description: This is a 16 channel EEG with an EKG lead. Patient is reported awake and drowsy during the tracing. Background EEG rhythm is 16-20 hertz 5 to 20 microvolt posteriorly and sometime intermittent theta range activity. No obvious asymmetry or paroxysmal tendency noted. Photic stimulation does not produce any significant driving. Hyperventilation is not performed. Cardiac lead does not reveal any significant abnormality. Some lead and muscle artifacts are noted. Impression: No significant abnormality noted on this EEG MTDD
--- OUTSIDE RECORDS SUMMARY | 2025-07-18 19:47 | XMS_ITS | Encounter Summary ---
Author Organization [employer] Address [address] [facility] [place] 7 [place] [address] Care Team Providers Care Ibm Mainframe Developer Name Role Phone Yuki Bull Unavailable Estrellita Mckeon NP Primary Care Provider [phone] Encounter Details Date Type Department Care Team ([facility] st Contact Info) Description 07/12/2025 Telephone [facility] [address] [place] [address] Estrellita Mckeon NP [address] [place], [place] [phone] Social History Tobacco Use Types Packs/Day Years Used Date Smoking Tobacco: Never Passive Smoke Exposure: Never Smokeless Tobacco: Never Alcohol Use Standard Drinks/Week Comments Not Currently 0 (1 standard drink = 0.6 oz pur e alcohol) Alcohol Answer Date Recorded How often do you have a drink containing alcohol ? 0 10/16/2023 How many drinks containing a lcohol do you have on a typical day when you are drinking? 0 10/16/2023 How often do you have six or more drinks on one occasion? 0 10/16/2023 Housing Stability Answer Date Recorded What is your housing situation today? I do not have housing (Staying with others, in a hotel, in a senior living, living outside on the street, on a beach, in a car, or in a park 05/05/[address] you li ve. Do you have problems with any of the following? Not on file 05/05/2025 Food Insecurity Answer Date Recorded Within the past 12 months, y ou worried that your food would run out before you got money to buy more: Sometimes True 2022 Within the past 12 months,th e food you bought just didn't last and you didn't have enough money to get more: Sometimes True 06/17/2023 Transportation Answer Date Recorded In the past 12 months, has l ack of transportation kept you from medical appts, meetings, work or from getting things needed for daily living? Yes, it has kept me from medical appointments or getting medications. 11/28/2023 Intimate Partner Violence Answer Date R ecorded Within the last year, have y ou been afraid of your partner or ex-partner? 2 08/14/2023 Within the last year, have y ou been humiliated or emotionally abused in other ways by your partner or ex-partner? 2 Within the last year, have y ou been kicked, hit, slapped, or otherwise physically hurt by your partner or ex-partner? 2 08/14/2023 Within the last year, have y ou been raped or forced to have any kind of sexual activity by your partner or ex-partner? 2 08/14/2023 Utilities Answer Date Recorded In the past 12 months, has t he electric, gas, oil or water company threatened to shut off services in your home? No 06/17/2023 Depression Answer Date Recorded Patient Health Questionnaire-2 Score 0 08/14/2023 Internet Access Answer Date Recorded Internet Access Q1 Yes 04/27/2024 Internet Access Q2 Not on file 04/27/2024 Comments No Sex and Gender Information Value Date Recorded Sex Assigned at Female 08/14/2022 1:49 PM EST Legal Sex Female 6:23 PM EDT Gender Identity Female 06/21/2022 6:23 PM EDT Sexual Orientation Straight 06/21/2022 6: 23 PM EDT documented as of this encounter Miscellaneous Notes * Telephone Encounter - Sundar Tyson - 07/12/2025 2:26 PM EST Patient is looking for all medical records pertaining to Neurology to get sent to Carlos Schafer MD's office. His office's phone number [phone] documented in this encounter Plan of Treatment Upcoming Encounters Date Type Department Care Team (Late st Contact Info) Description 08/12/2025 3:20 PM EST Office Visit [address] [phone] Estrellita Mckeon NP [address] [place] [address] 08/30/2025 10:00 AM EST Office Visit [address] [phone] Estrellita Mckeon NP [address] [place] [address] documented as of this encounter Visit Diagnoses Not on filedocumented in this encounter Care Teams Ibm Mainframe Developer Relationship Specialty Start Date End Date Estrellita Mckeon NP [address] [place] [address] PCP - General Family Medicine 09/16/23 Yuki Bull [address] [place] [address] 04/16/23 Dr Pippa Lowry [place]-office Meghan [phone] Consulting Physician Neurosurgery 04/11/23 documented as of this encounter
--- OUTSIDE RECORDS SUMMARY | 2025-07-18 19:47 | XMS_ITS | Encounter Summary ---
Author Organization [employer] Address [address] [facility] 7 [place] [address] Care Team Providers Care Art Therapist Name Role Phone Yuki Bull Unavailable Estrellita Mckeon NP Primary Care Provider [phone] Encounter Details Date Type Department Care Team ([facility] st Contact Info) Description 07/06/[address] [phone] Estrellita Mckeon NP [address] [place] [address] Social History Tobacco Use Types Packs/Day Years [...] with others, in a hotel, in a halfway, living outside on the street, on a [...] encounter Miscellaneous Notes * Telephone Encounter - Claudia Braga MA - 07/06/2025 3:38 PM EST Spoke w/ patient and she wanted her follows up Mckeon and to make sure script was sent in. * Telephone Encounter - hRonda Zurita - 07/06/2025 2:05 PM EST Pt called on vmail returning our call * Telephone Encounter - Angelica Bartonperla - 07/06/2025 12:18 PM EST Patient called and LVM, I ended up lv2cb. [phone] documented in this encounter Plan of Treatment Upcoming Encounters Date Type Department Care Team (Late st Contact Info) Description 08/12/2025 3:20 PM EST Office Visit [address] [phone] Estrellita Mckeon NP [address] [place] [address] 08/30/2025 10:00 AM EST Office Visit [address] [phone] Estrellita Mckeon NP [address] [place] [address] documented as of this encounter Visit Diagnoses Not on filedocumented in this encounter Care Teams Art Therapist Relationship Specialty Start Date End Date Estrellita Mckeon NP [address] [place] [address] PCP - General Family Medicine 09/16/23 Yuki Bull [address] [place] [address] 04/16/23 Dr Pippa Hernandez [facility]-office Meghan [phone] Consulting Physician Neurosurgery 04/11/23 documented as of this encounter
--- OUTSIDE RECORDS SUMMARY | 2025-07-18 19:47 | XMS_ITS | Encounter Summary ---
Author Organization [employer] Address 75 [facility] 7 [place] [address] Care Team Providers Care Double Cutter Name Role Phone Yuki Bull Unavailable Estrellita Mckeon NP Primary Care Provider [phone] Encounter Details Date Type Department Care Team ([facility] st Contact Info) Description 06/07/[address] [phone] Estrellita Mckeon NP [address] [place] [address] Social History Tobacco Use Types Packs/Day Years [...] with others, in a hotel, in a intermediate, living outside on the street, on a [...] encounter Miscellaneous Notes * Telephone Encounter - Latha Clemens - 06/22/2025 10:40 AM EDT Called, LMTCB * Telephone Encounter - Suzi Romeo - 06/07/2025 10:08 AM EDT Pt is requesting a closer Development Assistant, Pt is currently being seen in [place] but is having transportation issues. Please advise [phone] documented in this encounter Plan of Treatment Upcoming Encounters Date Type Department Care Team (Late st Contact Info) Description 08/12/2025 3:20 PM EST Office Visit [address] [phone] Estrellita Mckeon NP [address] [place] [address] 08/30/2025 10:00 AM EST Office Visit [address] [phone] Estrellita Mckeon NP [address] [place] [address] documented as of this encounter Visit Diagnoses Not on filedocumented in this encounter Care Teams Double Cutter Relationship Specialty Start Date End Date Estrellita Mckeon NP [address] [place] [address] PCP - General Family Medicine 09/16/23 Yuki Bull [address] [place] [address] 04/16/23 Dr Pippa Hernandez [facility]-office Meghan [phone] Consulting Physician Neurosurgery 04/11/23 documented as of this encounter
--- OUTSIDE RECORDS SUMMARY | 2025-07-18 19:47 | XMS_ITS | Encounter Summary ---
Author Organization [employer] Address 75 [facility] 7 [place] [address] Care Team Providers Care Ramp Jockey Name Role Phone Yuki Bull Unavailable Estrellita Mckeon NP Primary Care Provider [phone] Encounter Details Date Type Department Care Team ([facility] st Contact Info) Description 07/06/[address] [phone] Estrellita Mckeon NP [address] [place] [address] Social History Tobacco Use Types Packs/Day Years [...] with others, in a hotel, in a prison, living outside on the street, on a [...] PM EDT documented as of this encounter Plan of Treatment Upcoming Encounters Date Type Department Care Team ([facility] Contact Info) Description 08/12/2025 3:20 PM EST Office Visit [facility] [address] [place] [phone] Estrellita Mckeon, EL [address] [place], [place] [phone] 08/30/2025 10:00 AM EST Office Visit [facility] [address] [place] [phone] Estrellita Mckeon NP [address] [place] [address] documented as of this encounter Visit Diagnoses Not on filedocumented in this encounter Care Teams Ramp Jockey Relationship Specialty Start Date End Date Estrellita Mckeon NP [address] [place] [address] PCP - General Family Medicine 09/16/23 Yuki Bull [address] [place] [address] 04/16/23 Dr Pippa Hernandez [facility]-office Meghan [phone] Consulting Physician Neurosurgery 04/11/23 documented as of this encounter
--- OUTSIDE RECORDS SUMMARY | 2025-07-18 19:47 | XMS_ITS | Encounter Summary ---
Author Organization [employer] Address [address] [place] [address] [place] [address] Care Team Providers Care Geospatial Intelligence Analyst Name Role Phone Gerda Morillo Primary Care Provider Unavail able Gerda Morillo Unavailable Unavailable Yuki Bull Unavailable FlorDelfina Unavailable Estrellita Mckeon NP Primary Care Provider [phone] Reason for Visit * Reason Onset Date Comments Med Refill 10/21/2022 clopidogrel (Anthony vix) 75 MG tablet to [facility] #[id number], julio pt only has 2 days left. Script was sent back on 10/15 but pharmacy did get it please resend. Encounter Details Date Type Department Care Team (Late st Contact Info) Description 10/21/[address] [phone] Gerda Morillo FNP Med Refill (clopidogrel (Plavix) 75 MG tablet to [facility] #[id number], julio pt only has 2 days left. Script was sent back on 10/15 but pharmacy did get it please resend. ) Social History Tobacco Use Types Packs/Day Years Used Date Smoking Tobacco: Never Passive Smoke Exposure: Never Smokeless Tobacco: Never Comments Unknown Sex and Gender Information Value Date Recorded Sex Assigned at Female 08/14/2022 1:49 PM EST Legal Sex Female 6:23 PM EDT Gender Identity Female 06/21/2022 6:23 PM EDT Sexual Orientation Straight 06/21/2022 6: 23 PM EDT COVID-19 Exposure Response Date Recorded In the last 10 days, have myrna ordaz been in contact with someone who was confirmed or suspected to have Coronavirus/COVID-19? No / Unsure 10/16/2022 10:11 AM EST documented as of this encounter Miscellaneous Notes * Telephone Encounter - Nany Serrano - 10/21/2022 2:33 PM EST I spoke with patient and let her know it was sent in today. documented in this encounter Plan of Treatment Upcoming Encounters Date Type Department Care Team (Late st Contact Info) Description 08/12/2025 3:20 PM EST Office Visit [address] [phone] Estrellita Mckeon NP [address] [place] [address] 08/30/2025 10:00 AM EST Office Visit [address] [phone] Estrellita Mckeon NP [address] [place] [address] documented as of this encounter Visit Diagnoses Not on filedocumented in this encounter Care Teams Geospatial Intelligence Analyst Relationship Specialty Start Date End Date Gerda Morillo FNP PCP - General Family Medicine 06/21/22 09/15/23 Estrellita Mckeon NP [address] [place] [address] PCP - General Family Medicine 09/16/23 Gerda Morillo FNP Family Medicine 06/21/22 04/20/23 Yuki Bull [address] [place] [address] 04/16/[place] [address] 06/23/23 03/09/24 [phone] Consulting Physician Neurosurgery 04/11/23 documented as of this encounter
--- OUTSIDE RECORDS SUMMARY | 2025-07-18 19:47 | XMS_ITS | Encounter Summary ---
Author Organization [employer] Address [address] [place] [address] 7 [place] [address] Care Team Providers Care Frame Cleaner Name Role Phone Yuki Bull Unavailable Estrellita Mckeon NP Primary Care Provider [phone] Encounter Details Date Type Department Care Team ([facility] Contact Info) Description 06/15/2025 Results Follow-Up [facility] [address] [place] [address] Estrellita Mckeon NP [address] [place], [place] [phone] MR Brain w/o Contrast Social History Tobacco Use Types Packs/Day Years [...] with others, in a hotel, in a correction, living outside on the street, on a [...] Upcoming Encounters Date Type Department Care Team ([facility] st Contact Info) Description 08/12/2025 3:20 PM EST Office Visit [facility] [address] [place] [phone] Estrellita Mckeon, EL [address] [place], [place] [phone] 08/30/2025 10:00 AM EST Office Visit [facility] [address] [place] [phone] Estrellita Mckeon NP [address] [place], [place] [phone] documented as of this encounter Visit Diagnoses Not on filedocumented in this encounter Care Teams Frame Cleaner Relationship Specialty Start Date End Date Estrellita Mckeon NP [address] [place] [address] PCP - General Family Medicine 09/16/23 Yuki Bull [address] [place] [address] 04/16/23 Dr Pippa Hernandez [facility]-office Meghan [phone] Consulting Physician Neurosurgery 04/11/23 documented as of this encounter
--- OUTSIDE RECORDS SUMMARY | 2025-07-18 19:48 | XMS_ITS | Clinical Summary ---
Author Organization [employer] Address [address] [place] [address] 7 [place] [address] Care Team Providers Care Electronic Die Maker Name Role Phone Yuki Bull Unavailable Estrellita Mckeon NP Primary Care Provider [phone] Allergies Active Allergy Reactions Criticality Noted Date Comments Ascriptin Nausea And Vomiting Medium 04/19/2021 Aspirin Nausea And Vomiting,Vomiting Medium 01/23/1975 Bacitracin Rash Medium 04/19/2021 Latex Rash High 04/19/2021 Kumfw-Wovco-Csekumi-Pra moxine Other Medium 10/05/2021 Nsaids Other Medium 04/21/2023 Nausea and vomiting Penicillins Itching,Nausea And Vomiting Medium 04/24/2021 Pravastatin Unknown Medium 04/24/2021 Other reaction(s): muscle aches Wound Dressings Rash High 01/23/2023 Medications adalimumab (Humira) 40 MG/0.4ML Prefilled Syringe Kit prefilled syringe 01/25/20 Active cyanocobalamin (Vitamin B-12) 100 MCG tablet daily. 01/25/20 Active L-lysine 500 MG tablet L-Lysine 500 MG Oral Tablet QTY: 0 tablet Days: 0 Refills: 0 Written: 03/02/22 Patient Instructions: 03/02/20 22 Active Multiple Vitamin (Multi-Vitamin) tablet Take 1 tablet by mouth in the morning. Active pyridoxine (B-6) 100 MG tablet daily. 01/25/20 Active riboflavin (vitamin B2) 100 mg tablet tablet daily. Active furosemide (Lasix) 20 MG tablet Take 1 tablet (20 mg) by mouth Once per day for 10 days. 5 tablet 1 07/30/20 24 Active alendronate (Fosamax) 70 MG tablet TAKE 1 TABLET BY MOUTH WEEKLY WITH 8 OZ OF PLAIN WATER 30 MINUTES BEFORE FIRST FOOD, DRINK OR MEDS. STAY UPRIGHT FOR 30 MINS 12 tablet 3 09/14/19 25 Active Calcium Carb-Cholecalci ferol (Calcium 500 + D) 500-5 MG-MCG tablet Take 1 capsule by mouth. 09/12/19 25 Active acetaminophen (Tylenol) 325 MG capsule Take 650 mg by mouth. 07/13/20 24 Active melatonin 3 MG tablet Take 3 mg by mouth if needed at bedtime for sleep. 08/11/20 24 Active silver sulfADIAZINE (Silvadene) 1 % creamIndication s:Subacute maxillary sinusitis Apply 1 Application. topically 2 times daily. 50 g 3 09/27/19 25 Active DULoxetine (Cymbalta) [address] capsuleIndicati ons:Recurrent major depressive disorder, in partial remission (CMS/HCC) Take 1 capsule (30 mg) by mouth Once per day. Do not crush or chew. 90 capsule 1 10/11/19 25 Active fluticasone (Flonase) 50 MCG/ACT nasal spray Administer 1-2 sprays into each nostril Once per day. Shake gently. Before first use, prime pump. After use, clean tip and replace cap. 16 g 3 11/10/19 25 Active gabapentin (Neurontin) 100 MG capsuleIndicati ons:Fibromyalgi a TAKE 1 CAPSULE BY MOUTH TWICE DAILY 200 capsule 2 12/18/19 25 Active pantoprazole (ProtoNix) 40 MG EC tabletIndicatio ns:Gastroesopha geal reflux disease with esophagitis, unspecified whether hemorrhage TAKE 1 TABLET BY MOUTH BEFORE BREAKFAST 100 tablet 2 01/19/20 25 Active divalproex (Depakote) 250 MG EC tablet Take 1 tablet (250 mg) by mouth Once per day for 7 doses. Do not crush, chew, or split. 7 tablet 01/19/20 25 Active divalproex (Depakote ER) 250 MG 24 hr tabletIndicatio ns:Recurrent major depressive disorder, in partial remission (CMS/HCC) TAKE 1 TABLET BY MOUTH ONCE DAILY 60 tablet 5 02/18/20 25 Active clopidogrel (Plavix) 75 MG tabletIndicatio ns:Thrombosis TAKE 1 TABLET BY MOUTH ONCE DAILY 60 tablet 5 02/18/20 25 Active lisinopril 20 MG tabletIndicatio ns:Primary hypertension Take 1 tablet (20 mg) by mouth Once per day. 90 tablet 3 03/21/20 25 026 Active rosuvastatin (Crestor) 5 MG tabletIndicatio ns:Cerebellar stroke syndrome Take 1 tablet (5 mg) by mouth Once per day. 90 tablet 3 05/05/20 25 026 Active montelukast (Singulair) 10 MG tablet Take 1 tablet (10 mg) by mouth at bedtime. 90 tablet 3 05/19/20 25 026 Active triamterene (Dyrenium) 50 MG capsuleIndicati ons:Primary hypertension TAKE 1 CAPSULE(50 MG) BY MOUTH DAILY 90 capsule 1 06/13/20 25 Active levothyroxine (Synthroid, Levoxyl) 88 MCG tabletIndicatio ns:Hypothyroidi sm, unspecified type TAKE 1 TABLET BY MOUTH IN THE MORNING 100 tablet 2 06/29/20 25 Active mupirocin (Bactroban) 2 % ointment APPLY TOPICALLY TO THE AFFECTED AREA THREE TIMES DAILY 15 g 2 07/04/20 25 Active levothyroxine (Synthroid, Levoxyl) 88 MCG tabletIndicatio ns:Hypothyroidi sm, unspecified type TAKE 1 TABLET BY MOUTH IN THE MORNING 100 tablet 2 09/02/19 25 025 Discontinued mupirocin (Bactroban) 2 % ointment APPLY TOPICALLY TO THE AFFECTED AREA THREE TIMES DAILY 15 g 2 10/26/19 25 025 Discontinued(R eorder (will not trigger notification to Pharmacy)) mupirocin (Bactroban) 2 % ointment APPLY TOPICALLY TO THE AFFECTED AREA THREE TIMES DAILY 15 g 2 07/01/20 25 025 Discontinued(R eorder (will not trigger notification to Pharmacy)) Active Problems Problem Noted Date Diagnosed Date Cystocele without uterine prolapse 03/14/2025 Class 1 obesity 03/14/2025 GERD (gastroesophageal reflux disease) History of breast cancer 03/14/2025 Cerebellar infarct (CMS/HCC) 03/14/2025 Chronic tension headaches 03/14/2025 Depression 03/14/2025 Hypertension 03/14/2025 Disease due to severe acute respiratory syndrome coronavirus 2 (SARS-CoV-2) 09/13/2024 Overview (03/14/2025): Problem added by Discern Expert Wound of left leg 07/05/2024 Assessment & Plan (11/09/2024 12:11 PM EDT): Worsened persistent excoriated patches covering left lower leg. Two small patches have now started on right leg. Previous antibiotic treatment has been ineffective. Possible side effect of Humira? Placed urgent referral to dermatology. Assessment & Plan (09/28/2024 3:47 PM EST): - continue Silvadene, script sent Assessment & Plan (07/05/2024 9:54 AM EST): - left remy wound with very slow healing today - encouraged continued skin hydration and monitoring - recommened trial of Arnica cream - consider Derm consult if not improving at follow up Chronic bilateral low back pain without sciatica 05/04/2024 Assessment & Plan (07/27/2024 1:48 PM EST): - Chronic back pain with recent exacerbation, possibly related to arthritis and nerve irritation. - Increase gabapentin to daily use for 5-7 days, then return to as-needed use. Consider physical therapy for strengthening and stretching. Discussed the possibility of rescheduling physical therapy sessions if unable to attend due to pain. Assessment & Plan (05/04/2024 11:31 AM EDT): - Chronic back pain likely due to muscle strain and poor posture. No red flags. - Pain exacerbated by activities involving bending and lifting. - Recommend physical therapy, particularly pool exercises. - Suggest home stretches including simple twists, forward stretches, and leg stretches. - advise elevating the bunny cage to reduce bending. - Encourage taking gabapentin more regularly, especially at night, to manage pain. - f/u PRN Visit for TB skin test 04/27/2024 Assessment & Plan (04/27/2024 11:14 AM EDT): Recent TB test with indeterminant initial result, will repeat at next lab draw to confirm SOB (shortness of breath) 04/27/2024 Assessment & Plan (04/27/2024 11:15 AM EDT): Likely multifactorial due to FRANCHESKA, anemia and post-stroke sequela Encourage nutritional increase in iron, continues use of CPAP and daily deep breathing exercises Will request PFT report that was apparently done January 2024 at ENT Bilateral tinnitus 01/30/2024 Anterior epistaxis 01/30/2024 Non-allergic rhinitis 01/30/2024 Seasonal allergic rhinitis 01/30/2024 Sensorineural hearing loss (SNHL) of both ears 0 01/30/2024 Chronic hyponatremia 01/22/2024 Overview (01/22/2024): Followed with Nephrology Assessment & Plan (07/05/2024 9:53 AM EST): 1. Low Sodium Levels - Low sodium levels are a concern, potentially exacerbated by current blood pressure medication. - Stop lisinopril temporarily. Monitor blood pressure and sodium levels. Consider changing blood pressure medication to avoid sodium reduction. - continue daily half tablet of hydrochlorothiazide-triamterene - Use Lasix as needed for fluid management. - Follow-up in two weeks to check blood pressure and sodium levels. Fibromyalgia 11/28/2023 Assessment & Plan (12/21/2023 4:18 PM EDT): Symptoms are at baseline today. Refilled Gabapentin. Encouraged physcal activity as much as possible, though recognize the limitations that her knee OA causes Assessment & Plan (11/28/2023 3:24 PM EDT): Add Gabapentin 100mg 1-2 times a day for flare. Can stop when feeling better Encouraged to notice how long she feels the flare lasts Can continue with Tylenol Printed PT referral for making an appt Primary osteoarthritis involving multiple joints 11/28/2023 Assessment & Plan (11/09/2024 12:09 PM EDT): Increased severity of chronic pain in neck, hips, back, and knees. Currently takes Tylenol 650mg every day and gabapentin 100mg BID. Will restart glucosamine. Start Tramadol 50mg occasionally for severe pain, can cut in half if too strong. Pt aware of risks associated with balance and changes to mental status. Agrees to using sparingly. Assessment & Plan (10/22/2024 4:04 PM EST): - Chronic pain in neck, back, hips, and knees - Referral to physical therapy - Initiate use of Voltaren gel, - Use a wheeled walker for increased independence and safety. -Will consider additional prn med if Voltaren is ineffective Assessment & Plan (12/21/2023 4:18 PM EDT): Will refer to Ortho for consult on need for knee replacement. Assessment & Plan (11/30/2023 8:13 AM EDT): Puffy and moderately firm posterior left knee, suspect Quinones's cyst Will check XR Impaired glucose tolerance 10/16/2023 Overview (12/18/2023): A1C 6.JanuaryJanuary: 5.7 Assessment & Plan (04/27/2024 11:13 AM EDT): Repeat A1C at next labs Refer to [facility] exercise program for DM prevention and therapeutic exercise Decreased hearing of both ears 08/22/2023 Assessment & Plan (08/22/2023 9:00 AM EST): Refer to ENT for comprehensive assessment for complaint of hearing loss with benign ear exam Cataracts 08/14/2023 Assessment & Plan (08/22/2023 9:00 AM EST): With glaucoma, 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 Current medications include triamterene and lisinopril, though lisinopril was not listed in recent paperwork. Awaiting input from kidney doctor regarding lisinopril. - Continue triamterene. Await confirmation from kidney doctor regarding lisinopril. Discontinue hydrochlorothiazide. Dispose of unused medications as advised. Assessment & Plan (07/27/2024 1:50 PM EST): - continue current regimen as is today - Consider Spironolactone in future if regimen change is needed Assessment & Plan (07/20/2024 2:28 PM EST): Blood Pressure Management - Blood pressure slightly elevated at 147/80 mmHg compared to previous reading of 91/61 mmHg. - Resume lisinopril at a lower dose of 20 mg. New prescription to be sent. Continue monitoring sodium levels. Sodium Levels - Sodium level at 131, slightly low but stable. - Check sodium levels as it has been over six months since the last check. Assessment & Plan (07/05/2024 9:56 AM EST): - HOLD Lisionpril - continue hydrochlorothiazide-triamterene - f/u 2 weeks, check labs at that time Assessment & Plan (04/27/2024 11:12 AM EDT): BP stable today, follows with Renal, needs BMP monitoring. Will add on BMP to labs she plans to do at tomorrow Assessment & Plan (12/21/2023 4:16 PM EDT): BP is controlled today. We had extensive discussion about her previous cardiac work up and current symptoms, mutually agreeing no further intervention is due at this time. She will continue to monitor her symptoms and stay as active as she can Chronic sinusitis 10/17/2022 Overview (10/16/2023): On antihistamines, gets left nare epistaxis at times Assessment & Plan (11/09/2024 12:13 PM EDT): Received Augmentin for sinusitis 09/27/24. Reports symptoms improved for awhile, but recently recurred with congestion and thick yellow discharge. No fever, cough, or sinus pain. Exam unremarkable. Encouraged use of Flonase and normal saline spray. Assessment & Plan (10/16/2023 1:14 PM EST): Will stop antihistamine for now, trial Singulair instead Ataxia 08/14/2022 Chronic ulcerative rectosigmoiditis (CMS/HCC) History of cholecystectomy 08/14/2022 Impairment of balance 08/14/2022 Assessment & Plan (08/22/2023 8:58 AM EST): Patient reporting balance issues without falls since neck surgery, though overall she is healing well. She also has hearing and vision issue We will have patient follow up with Neurosurgery as scheduled, see ENT and Ophthalmology then re-assess Ischemic stroke (CMS/HCC) 08/14/2022 Magnetic resonance imaging of brain abnormal Chronic tension-type headache 08/14/2022 Obstructive sleep apnea syndrome 08/14/2022 Overview (01/07/2024): Not wearing CPAP mask due to Ulc Colitis Referred to Pulmonology for alternate device Repeat sleep study March 10, 2024 Assessment & Plan (05/31/2025 11:59 AM EDT): - Persistent fatigue attributed to untreated obstructive sleep apnea. CPAP not in use; polysomnography referral initiated. - Sleep Medicine referral placed; patient provided with contact information for scheduling polysomnography. Follow-up in three months to review polysomnography results. Assessment & Plan (05/12/2025 3:51 PM EDT): - book back to Sleep Clinic for follow up Orders: Referral to Sleep Medicine; Future Assessment & Plan (05/09/2025 10:05 AM EDT): - Obstructive sleep apnea confirmed; CPAP machine currently unavailable due to storage issues; ongoing symptoms of excessive daytime sleepiness and falls. - Advised to locate CPAP machine and resume use. Will initiate process to obtain replacement CPAP if unable to recover current device. Recommended follow-up with sleep specialist to evaluate candidacy for additional therapie Weakness 08/14/2022 Mild eczema 08/14/2022 Assessment & Plan (11/30/2023 8:12 AM EDT): She has some erythematous shiny skin on the left anterior remy Gave Silvadene for skin healing Encouraged skin hydration Assessment & Plan (08/14/2022 2:58 PM EST): Start topical steroid cream to affected lower leg skin rash Continue for 7-10 days or until improvement is seen Acute seborrheic dermatitis 08/14/2022 Assessment & Plan (08/14/2022 3:11 PM EST): Start topical corticosteroid solution to scalp area twice a day as directed for up to 14 days Malignant neoplasm of breast 05/27/2022 Overview (08/14/2022): Note: Right Breast Cancer, Mastectomy Cataract 03/02/2022 Hypothyroidism 03/02/2022 Overview (10/16/2023): 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 Condition is being managed with Humira. - Continue Humira. Monitor for dehydration and symptom control. Assessment & Plan (04/27/2024 11:13 AM EDT): Followed by GI, pending repeat labs. Encouraged to continue Humira per GI Assessment & Plan (10/16/2023 1:10 PM EST): Moderate control, mostly asymptomatic Tricuspid valve disorder 11/15/2021 Overview (08/14/2022): Note: trace tricuspid regurge on echo Osteoporosis 11/09/2021 Normal electrocardiography 09/14/2021 Transient ischemic attack 09/14/2021 Overview (12/18/2023): Many TIAs in the past, seeing Dr. Zheng Neurology Assessment & Plan (05/31/2025 11:59 AM EDT): - Ongoing risk for cerebrovascular events. Sharp head pains noted; MRI ordered to evaluate for acute or chronic changes. Previous MRI detected TIA; current MRI may not show transient changes if performed after resolution. - Continue cholesterol medication to reduce stroke risk. MRI approved by insurance; patient provided with contact information to facilitate scheduling. Follow-up in three months to review MRI results. Assessment & Plan (12/21/2023 4:20 PM EDT): Discussed sequela of stroke and likely contributory nature on current symptoms of low stamina and fatigue. Encouraged to continue following with Neurology as indicated, and to bring the concern for MS to Neuro. She has had MRI brain which was not suggestive of MS. No further intervention today. 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 - Ordered MRI of the brain. Will contact neurology office to request expedited appointment and communicate new symptoms. Recommended trial of rosuvastatin 5 mg daily to reduce risk of recurrent stroke. Scheduled follow-up visit in one week to assess medication tolerance and review progress. - Risks and side effects: Discussed potential for muscle aches with statin therapy; patient agreed to notify if adverse effects occur. Orders: MR Brain w/o Contrast; Future rosuvastatin (Crestor) 5 MG tablet; Take 1 tablet (5 mg) by mouth Once per day. Encounters Date Type Department Care Team Description 07/12/[address] [place] [address] Estrellita Mckeon NP 07/12/[address] [place] [address] Estrellita Mckeon NP 07/12/[address] [phone] Estrellita Mckeon NP 07/12/[address] [phone] Estrellita Mckeon NP 07/06/[address] [place] [address] Estrellita Mckeon NP 07/06/[address] [place] [address] Estrellita Mckeon NP 07/01/[address] [phone] Estrellita Mckeon NP 06/30/[address] [phone] Estrellita Mckeon NP 06/28/[address] [phone] Estrellita Mckeon NP Hypothyroidism, unspecified type 06/28/2025 Telephone [facility] [address] [place] [phone] Estrellita Mckeon NP 06/27/2025 Telephone [facility] [address] [place] [address] Estrellita Mckeon NP 06/22/2025 Telephone [facility] [address] [place] [address] Estrellita Mckeon NP 06/22/[address] [facility] [address] [facility] [address] [place] [address] Estrellita Mckeon NP 06/21/[address] [phone] Susan Montoya [facility] - Transportation Assistance 06/16/2025 Telephone [facility] [address] [place] [address] Estrellita Mckeon NP 06/15/2025 Results Follow-Up [address] [phone] Estrellita Mckeon NP MR Brain w/o Contrast 06/10/[address] [phone] Estrellita Mckeon NP Primary hypertension 06/07/[address] [place] [address] Estrellita Mckeon NP 06/07/2025 Telephone [facility] [address] [place] [address] Estrellita Mckeon NP 05/31/2025 11:20 AM EDT Office Visit [address] [phone] Estrellita Mckeon NP Ulcerative colitis with rectal bleeding, unspecified location (CMS/HCC) (HCC) (Primary Dx); Transient ischemic attack; Obstructive sleep apnea syndrome 05/31/2025 Telephone [facility] [address] [facility] [address] [place] [address] Estrellita Mckeon NP 05/19/[address] [address] Estrellita Mckeon NP 05/17/2025 9:30 AM EDT [facility] [address] [phone] Susan Montoya 05/13/[address] [phone] Estrellita Mckeon NP 05/13/2025 Telephone [facility] [address] [facility] 200 [place] [address] Estrellita Mckeon NP 05/12/2025 3:00 PM EDT Office Visit [address] [phone] Estrellita Mckeon NP Need for vaccination (Primary Dx); Cerebellar stroke syndrome; Obstructive sleep apnea syndrome; Transportation insecurity 05/11/[address] [address] Estrellita Mckeon NP 05/11/[address] [phone] Estrellita Mckeon NP 05/06/2025 8:30 AM EDT [facility] [address] [phone] Susan Montoya 05/05/2025 10:40 AM EDT Office Visit [address] [phone] Estrellita Mckeon NP Homeless (Primary Dx); Cerebellar stroke syndrome; Obstructive sleep apnea syndrome 04/29/[address] [phone] Alexandra Roberto LPN 04/28/[address] [place] [address] Estrellita Mckeon NP from Last 3 Months Immunizations Immunization Administration Dates Next Due Influenza injectable quadriv alent preservative free 08/14/2023 Influenza, High Dose Seasona l, Preservative Free 05/12/2025,05/27/2022 Influenza, IIV3, injectable 06/10/2009, 7 Influenza, seasonal, injecta ble, preservative free 07/27/2020 Influenza, trivalent, adjuvanted 06/16/2024 Moderna Covid-19 Vaccine 12+ 06/16/2024,01/20/20 21,12/22/2020 Pneumococcal Conjugate PCV 20 12/25/2022 Tdap 10/16/2023 Zoster, Recombinant 06/16/2024 Family History Medical History Relation Name Comments Multiple sclerosis Cousin Multiple sclerosis Mother's Sister Relation Name Status Comments Cousin Alive Mother's Sister Social History Tobacco Use Types Packs/Day Years Used Date Smoking Tobacco: Never Passive Smoke Exposure: Never Smokeless Tobacco: Never Tobacco Cessation:Counseling Given: Not Answered Alcohol Use Standard Drinks/Week Comments Not Currently [...] with others, in a hotel, in a mcc, living outside on the street, on a [...] Orientation Straight 06/21/2022 6: 23 PM EDT Last Filed Vital Signs Vital Sign Reading Time Taken Comments Blood Pressure 127/71 05/31/2025 11:16 AM EDT Pulse 92 05/31/2025 11:16 AM EDT Temperature 36.2 C (97.2 F) 12/16/2024 4:29 PM EDT Respiratory Rate - - Oxygen Saturation 98% 05/31/2025 11:16 AM EDT Inhaled Oxygen Concentration - - Weight 86.9 kg (191 lb 9.6 oz) 05/05/2025 10:54 AM EDT Height 156.2 cm (5' 1.5 ) 05/04/2024 10:48 AM ED T Body Mass Index 35.62 05/04/2024 10:48 AM EDT Plan of Treatment Upcoming Encounters Date Type Department Care Team (Late st Contact Info) Description 08/12/2025 3:20 PM EST Office Visit [address] [phone] Estrellita Mckeon, EL [address] [place] [phone] 08/30/2025 10:00 AM EST Office Visit [address] [phone] Estrellita Mckeon NP [address] [place] [address] Health Maintenance Due Date Last Done Comments CT Colonography 1955 FIT DNA/Cologuard 1955 FIT 1955 FOBT 1955 Sigmoidoscopy 1955 Alcohol/Substance Use Screening 1967 RSV Patients and Patients Aged 60 years or older (1 - Risk 50-74 years 1-dose series) 2005 Zoster Vaccines (2 of 2) 08/11/2024 06/16/2024 Depression Screening 08/14/2024 08/14/2023, 08/14/20 23 SDOH Screening 11/27/2024 11/28/2023 Tobacco Screening 12/17/2024 12/18/2023 COVID-19 Vaccine ( season) 2025 06/16/2024, 01/19/2021, 12/22/2020 Mammogram 12/07/2025 12/07/2024, 11/24, 09/14/2021, Additional history exists Colonoscopy 03/31/2026 03/31/2023, 09/25, 11/23/2020, Additional history exists Colorectal Cancer Screening 03/31/2026 Lipid Panel 02/22/2027 02/22/2022, 07/0 08/2021, 02/20/2022, Additional history exists DTaP/Tdap/Td Vaccines (2 - Td or Tdap) 10/16/2033 10/16/2023 Hepatitis C Screening Completed 02/22/2022 Pneumococcal Vaccine: 50+ Years Completed 12/25/2022 Influenza Vaccine Completed 05/12/2025, , 08/14/2023, Additional history exists HIB Vaccines Aged Out No longer eligi ble based on patient's age to complete this topic HPV Vaccines Aged Out No longer eligi ble based on patient's age to complete this topic Hepatitis A Vaccines Aged Out No long er eligible based on patient's age to complete this topic Hepatitis B Vaccines Aged Out No long er eligible based on patient's age to complete this topic IPV Vaccines Aged Out No longer eligi ble based on patient's age to complete this topic Meningococcal B Vaccine Aged Out No l onger eligible based on patient's age to complete this topic Meningococcal Vaccine Aged Out No carmen kit eligible based on patient's age to complete this topic RSV under 20 months Aged Out No longe r eligible based on patient's age to complete this topic Rotavirus Vaccines Aged Out No longer eligible based on patient's age to complete this topic Procedures Procedure Name Priority Date/Time Associated Diagnosis Comments AMB REFERRAL TO NEUROLOGY Routine 06/20/2025 Ischemic stroke (CMS/HCC) (HCC) Transient ischemic attack MR BRAIN WO CONTRAST Routine 06/03/2025 Cerebellar stroke syndrome BI MAMMOGRAM SCREENING LEFT Routine 12/07/2024 1:37 PM EDT COLONOSCOPY Routine 03/31/2023 LIPID PANEL WITH REFLEX TO DIRECT LDL Routine 02/22/2022 2:13 PM EDT HEPATITIS C ANTIBODY Routine 02/22/2022 from Last 3 Months or Most Recently Relevant to Health Maintenance Results * Referral to Neurology (06/20/2025) us Estrellita Mckeon NP OUTPATIENT REFERRAL ORDERABLES E dited Result - Final * MR Brain w/o Contrast (06/03/2025) Anatomical Region Laterality Modality Brain Magnetic Resonan ce us Estrellita Mckeon NP IMG MRI PROCEDURES Final Result * BI Mammogram Screening Left (12/07/2024 1:37 PM EDT) Anatomical Region Laterality Modality Breast Left Mammography 12/07/2024 1:37 PM EDT Narrative 12/08/2024 11:39 AM EDT PROCEDURE: MM Digital Screen Mammo Unilat Left INDICATION: Patient had a previous right mastectomy. Patient had a previous left breast reduction. COMPARISON: 09/14/2021 TECHNIQUE: 3D tomosynthesis images of the breast was acquired. Computer-aided detection (CAD) was utilized in the interpretation of this study. DENSITY: There are scattered areas of fibroglandular density. FINDINGS: There is nothing present to suggest a malignancy. There are stable asymmetric markings superiorly in the central third of the breast. IMPRESSION: No mammographic evidence of malignancy. RECOMMENDATION: Annual mammographic screening BI-RADS: 2 (Benign) Lay letter mailed to patient WSN: [id number] Ordering Physician: Estrellita Mckeon Dictated By: Juan Farah MD Dictated Date/Time: 12/08/24 11:36 am Reviewed By: Juan Farah MD Signed By: Juan Farah MD Signed Date/Time: 12/08/24 11:36 am Transcribed By: BOBY Addiction Psychiatrist Date/Time: 12/08/24 11:31 am Birads: Procedure Note Donotuseinterpreter, Image - 12/08/2024 PROCEDURE: MM Digital Screen Mammo Unilat Left INDICATION: Patient had a previous right mastectomy. Patient had aprevious left breast reduction. COMPARISON: 09/14/2021 TECHNIQUE: 3D tomosynthesis images of the breast was acquired.Computer-aided detection (CAD) was utilized in the interpretation of this study. DENSITY: There are scattered areas of fibroglandular density. FINDINGS: There is nothing present to suggest a malignancy. There arestable asymmetric markings superiorly in the central third of the breast. IMPRESSION: No mammographic evidence of malignancy. RECOMMENDATION: Annual mammographic screening BI-RADS: 2 (Benign) Lay letter mailed to patient WSN: [id number] Ordering Physician: Estrellita Mckeon Dictated By: Juan Farah MD Dictated Date/Time: 12/08/24 11:36 am Reviewed By: Juan Farah MD Signed By: Juan Farah MD Signed Date/Time: 12/08/24 11:36 am Transcribed By: BOBY Addiction Psychiatrist Date/Time: 12/08/24 11:31 am Birads: Estrellita Mckeon POSTAL WORKER IMG BI PROCEDURES Final Result * Colonoscopy (03/31/2023) Colonoscopy Normal Normal Comment:POLYPS REMOVED- GI R ECOMMENDATION REPEAT 3 YEARS Historical Provider HEALTH MAINTENANCE Final Result * (ABNORMAL) LIPID PANEL W REFLEX TO DLDL (02/22/2022 2:13 PM EDT) Cholesterol, Total 191 (<200) MG/DL [facility] Triglycerides 166(H) (<150) MG/DL [facility] HDL Cholesterol 44 (>39) MG/DL [facility] LDL Cholesterol Calculated 114 (0-130) MG/DL [facility] Non-HDL Cholesterol 147 (<160) MG/DL [facility] Chol/HDLC Ratio 4.3 (<5.0) [facility] 02/22/2022 2:13 PM EDT Historical Provider LAB BLOOD ORDERABLES Serenity l Result [facility] [address] * Hepatitis C Antibody (02/22/2022) Hepatitis C Antibody Nonreactive Blood Historical Provider HEALTH MAINTENANCE Final Result from Last 3 Months or Most Recently Relevant to Health Maintenance Insurance [facility] MEDICARE ADVANTAGE HMO Care Teams Electronic Die Maker Relationship Specialty Start Date End Date Estrellita Mckeon NP [address] [place] [address] PCP - General Family Medicine 09/16/23 Yuki Bull [address] [place] [address] 04/16/23 Dr Pippa Hernandez [facility]-office Meghan [phone] Consulting Physician Neurosurgery 04/11/23
--- OUTSIDE RECORDS SUMMARY | 2025-07-18 19:48 | XMS_ITS | Encounter Summary ---
Author Organization [employer] Address 75 [facility] 7 [place] [address] Care Team Providers Care Assistant Tennis Professional Name Role Phone Yuki Bull Unavailable Estrellita Mckeon NP Primary Care Provider [phone] Encounter Details Date Type Department Care Team ([facility] st Contact Info) Description 11/26/2024 Telephone [facility] [address] [place] [address] Estrellita Mckeon NP [address] [place], [place] [phone] Social History Tobacco Use Types Packs/Day Years [...] What is your housing situation today? I have jolene carr 06/17/[address] you li ve. Do you have problems with any of the following? None of the above 06/17/2023 Food Insecurity Answer Date Recorded Within the [...] the past 12 months, has t he [employer], gas, oil or water [employer] threatened to shut off services in your [...] * Telephone Encounter - Latha Clemens - 12/29/2024 1:42 PM EDT refaxed * Telephone Encounter - Lisa Curiel - 11/26/2024 3:09 PM EDT Patient called about the status of the dermatology referral. They do not have it. Could you please refax it over to them? documented in this encounter Plan of Treatment Upcoming Encounters Date Type Department Care Team (Late st Contact Info) Description 08/12/2025 3:20 PM EST Office Visit [address] [phone] Estrellita Mckeon NP [address] [place] [address] 08/30/2025 10:00 AM EST Office Visit [address] [phone] Estrellita Mckeon NP [address] [place] [address] documented as of this encounter Visit Diagnoses Not on filedocumented in this encounter Care Teams Assistant Tennis Professional Relationship Specialty Start Date End Date Estrellita Mckeon NP [address] [place] [address] PCP - General Family Medicine 09/16/23 Yuki Bull [address] [place] [address] 04/16/23 Dr Pippa Hernandez [facility]-office Meghan [phone] Consulting Physician Neurosurgery 04/11/23 documented as of this encounter
--- OUTSIDE RECORDS SUMMARY | 2025-07-18 19:48 | XMS_ITS | Encounter Summary ---
Author Organization [employer] Address 75 [facility] 7t [place] [address] Care Team Providers Care Engineering Officer Name Role Phone Yuki Bull Unavailable Estrellita Mckeon NP Primary Care Provider [phone] Encounter Details Date Type Department Care Team ([facility] st Contact Info) Description 11/22/[address] [phone] Estrellita Mckeon NP [address] [place] [address] Social History Tobacco Use Types Packs/Day Years [...] the past 12 months, has t he [employer] gas, oil or water [employer] threatened to shut off services in your [...] * Telephone Encounter - Latha Clemens - 12/27/2024 10:43 AM EDT Referral has been processed and faxed * Telephone Encounter - Vinnie Cardoza - 11/22/2024 8:24 AM EDT Verified Insurance: Yes [employer] Referral Office:[facility] Diagnosis Code: Number of Visits Needed: 1 NPI# of Facility:[id number] NPI# of Provider being referred to: Phone #:[phone] Fax #: documented in this encounter Plan of Treatment Upcoming Encounters Date Type Department Care Team (Late st Contact Info) Description 08/12/2025 3:20 PM EST Office Visit [address] [phone] Estrellita Mckeon NP [address] [place] [address] 08/30/2025 10:00 AM EST Office Visit [address] [phone] Estrellita Mckeon NP [address] [place] [address] documented as of this encounter Visit Diagnoses Not on filedocumented in this encounter Care Teams Engineering Officer Relationship Specialty Start Date End Date Estrellita Mckeon NP [address] [place] [address] PCP - General Family Medicine 09/16/23 Yuki Bull [address] [place] [address] 04/16/23 Dr Pippa Hernandez [facility]-[phone] Consulting Physician Neurosurgery 04/11/23 documented as of this encounter
--- OUTSIDE RECORDS SUMMARY | 2025-07-18 19:48 | XMS_ITS | Encounter Summary ---
Author Organization [employer] Address [address] [place] [address] [place] [address] Care Team Providers Care Contracting Engineer Name Role Phone Yuki Bull Unavailable Estrellita Mckeon NP Primary Care Provider [phone] Reason for Visit * Reason Comments Med Refill Encounter Details Date Type Department Care Team ([facility] st Contact Info) Description 09/02/2024 Refill [facility] [address] [place] [address] Estrellita Mckeon NP [address] [place] [address] Hypothyroidism, unspecified type Social History Tobacco Use Types Packs/Day Years [...] the past 12 months, has t he [employer], gas, oil or water [employer] threatened to shut off services in your [...] encounter Miscellaneous Notes * Telephone Encounter - Rachel Woo LPN - 09/03/2024 9:08 AM EST Spoke to pt gave providers recommendations, Pt will get labs drawn before next refill is due. Pt also wanted to report dr. Donohue wanted pt to let MARIFER know of a blood sugar level of 134 within last month., * Telephone Encounter - Norma Caceres - 09/03/2024 8:48 AM EST Call back number Patient returned call, informed about refill and about lab orders however patient would like to know when MARIFER wants the labs done. Patient also stated that Dr. Donohue told patient that her blood sugar level was 134 within this last month and to let MARFIER know * Telephone Encounter - Estrellita Mckeon NP - 09/02/2024 8:28 PM EST Patient is just about due for labs for her thyroid. Please let her know I am entering orders and she can come to the lab at her convenience. I will send refill in the meantime. * Telephone Encounter - Andrea Doll MA - 09/02/2024 7:37 AM EST PCP: Estrellita Mckeon NP Last in-person office visit: 07/27/2024 Estrellita Mckeon NP Lab Results Component Value Date BUN 14 07/20/2024 CREATININE 0.87 07/20/2024 EGFRCREATINI 74 06/23/2023 HGBA1C 5.7 (H) 10/16/2023 K 4.0 07/20/2024 TSH 2.33 10/16/2023 Assessment: [] Protocol passed [] Lab due [] Appointment due Plan: [] Please refill for 100 days [] Lab [] BMP [] TSH [] A1C [] Appointment due: Future Appointments Date Time Provider Department Center 09/27/2024 1:00 PM Estrellita Mckeon NP [facility] 10/22/2024 1:20 PM Estrellita Mckeon NP [facility] Comments: Requesting 100 day rx / 1 year supply documented in this encounter Plan of Treatment Upcoming Encounters Date Type Department Care Team (Late st Contact Info) Description 08/12/2025 3:20 PM EST Office Visit [address] [phone] Estrellita Mckeon NP [address] [place] [address] 08/30/2025 10:00 AM EST Office Visit [address] [phone] Estrellita Mckeon NP [address] [place] [address] Scheduled Orders Name Type Priority Associated Diagnoses Orde r Schedule TSH with Reflex to Free T4 Lab Routine Hypothyroidism, unspecified type Expected: 09/02/2024, Expires: 09/02/2025 documented as of this encounter Visit Diagnoses Diagnosis Hypothyroidism, unspecified type documented in this encounter Care Teams Contracting Engineer Relationship Specialty Start Date End Date Estrellita Mckeon NP [address] [place] [address] PCP - General Family Medicine 09/16/23 Yuki Bull [address] [place] [address] 04/16/23 Dr Pippa Hernandez [facility]-office Meghan [phone] Consulting Physician Neurosurgery 04/11/23 documented as of this encounter
--- OUTSIDE RECORDS SUMMARY | 2025-07-18 19:48 | XMS_ITS | Encounter Summary ---
Author Organization [employer] Address 75 [facility] 7 [place] [address] Care Team Providers Care Light Fixture Servicer Name Role Phone Yuki Bull Unavailable Estrellita Mckeon NP Primary Care Provider [phone] Encounter Details Date Type Department Care Team ([facility] st Contact Info) Description 01/19/2025 Telephone [facility] [address] [place] [address] Estrellita Mckeon NP [address] [place], [place] [phone] Social History Tobacco Use Types Packs/Day Years [...] the past 12 months, has t he [employer], gas, oil or water [employer] threatened to shut off services in your [...] encounter Miscellaneous Notes * Telephone Encounter - Rhonda Zurita - 01/19/2025 4:12 PM EDT Patient is returning a call to W documented in this encounter Plan of Treatment Upcoming Encounters Date Type Department Care Team (Late st Contact Info) Description 08/12/2025 3:20 PM EST Office Visit [address] [phone] Estrellita Mckeon NP [address] [place] [phone] 08/30/2025 10:00 AM EST Office Visit [address] [phone] Estrellita Mckeon NP [address] [place] [address] documented as of this encounter Visit Diagnoses Not on filedocumented in this encounter Care Teams Light Fixture Servicer Relationship Specialty Start Date End Date Estrellita Mckeon NP [address] [place] [address] PCP - General Family Medicine 09/16/23 Yuki Bull [address] [place] [address] 04/16/23 Dr Pippa Lowry [place]-office Meghan [phone] Consulting Physician Neurosurgery 04/11/23 documented as of this encounter
--- OUTSIDE RECORDS SUMMARY | 2025-07-18 19:48 | XMS_ITS | Encounter Summary ---
Author Organization [employer] Address 75 [facility] 7 [place] [address] Care Team Providers Care Athletic Equipment Custodian Name Role Phone Yuki Bull Unavailable Estrellita Mckeon NP Primary Care Provider [phone] Encounter Details Date Type Department Care Team ([facility] st Contact Info) Description 12/15/2024 Telephone [facility] [address] [place] [address] Estrellita Mckeon NP [address] [place], [place] [phone] Social History Tobacco Use Types Packs/Day Years [...] the past 12 months, has t he [employer], [employer], oil or water [employer] threatened to shut off services in your [...] encounter Miscellaneous Notes * Telephone Encounter - Italo Lewis - 01/03/2025 10:16 AM EDT Re-faxed * Telephone Encounter - Tayler Masters - 12/15/2024 1:17 PM EDT Please refax the derm refferal documented in this encounter Plan of Treatment Upcoming Encounters Date Type Department Care Team (Late st Contact Info) Description 08/12/2025 3:20 PM EST Office Visit [address] [phone] Estrellita Mckeon NP [address] [place] [address] 08/30/2025 10:00 AM EST Office Visit [address] [phone] Estrellita Mckeon NP [address] [place] [address] documented as of this encounter Visit Diagnoses Not on filedocumented in this encounter Care Teams Athletic Equipment Custodian Relationship Specialty Start Date End Date Estrellita Mckeon NP [address] [place] [address] PCP - General Family Medicine 09/16/23 Yuki Bull [address] [place] [address] 04/16/[address] [place] [place]-office Meghan [phone] Consulting Physician Neurosurgery 04/11/23 documented as of this encounter
--- OUTSIDE RECORDS SUMMARY | 2025-07-18 19:48 | XMS_ITS | Encounter Summary ---
Author Organization [email or web address] Address 75 [facility] 7 [place] [address] Care Team Providers Care Exhibit Technician Name Role Phone Yuki Bull Unavailable Estrellita Mckeon NP Primary Care Provider [phone] Encounter Details Date Type Department Care Team ([facility] st Contact Info) Description 10/06/2024 Telephone [facility] 102 [place] [address] Estrellita Mckeon NP [address] [place], [place] [phone] Social History Tobacco Use Types Packs/Day Years [...] the past 12 months, has t he [email or web address], gas, oil or water [employer] threatened to shut off services in your [...] encounter Miscellaneous Notes * Telephone Encounter - Nohemy Young LPN - 10/06/2024 1:50 PM EST Spoke with pt, she used to take glucosamine/chondratin for arthritis and was taken off a long time ago per pt, and her arthritis is getting worse. Reminded pt of upcoming appt, Pt states she forgot about appt and will discuss at upcoming appt * Telephone Encounter - Aster Peña - 10/06/2024 1:13 PM EST Amanda called and needs to speak to someone about what they are going to do for her as when she was in the hospital the doctor took her Arthritis medication and she is having trouble without it and they adjusted other meds. Also wanted to give an FYI: she had her blood test done. Call back # [phone] documented in this encounter Plan of Treatment Upcoming Encounters Date Type Department Care Team (Late st Contact Info) Description 08/12/2025 3:20 PM EST Office Visit [address] [phone] Estrellita Mckeon NP [address] [place] [address] 08/30/2025 10:00 AM EST Office Visit [address] [phone] Estrellita Mckeon NP [address] [place] [address] documented as of this encounter Visit Diagnoses Not on filedocumented in this encounter Care Teams Exhibit Technician Relationship Specialty Start Date End Date Estrellita Mckeon NP [address] [place] [address] PCP - General Family Medicine 09/16/23 Yuki Bull [address] [place] [address] 04/16/23 Dr Pippa Lowry [place]-office Meghan [phone] Consulting Physician Neurosurgery 04/11/23 documented as of this encounter
--- OUTSIDE RECORDS SUMMARY | 2025-07-18 19:48 | XMS_ITS | Encounter Summary ---
Author Organization [employer] Address 75 [facility] 7 [place] [address] Care Team Providers Care Mental Health Specialist Name Role Phone Yuki Bull Unavailable Estrellita Mckeon NP Primary Care Provider [phone] Encounter Details Date Type Department Care Team ([facility] st Contact Info) Description 12/13/2024 Telephone [facility] [address] [place] [address] Estrellita Mckeon NP 102 [place], [place] [phone] Social History Tobacco Use Types Packs/Day Years [...] the past 12 months, has t he [employer], gas, oil or water [employer] threatened to shut off services in your [...] * Telephone Encounter - Latha Clemens - 12/15/2024 8:05 AM EDT refaxed * Telephone Encounter - Rhonda Zurita - 12/14/2024 3:58 PM EDT Patient called on vmail at 348 pm asking that her dermatology referral get faxed right away as her leg is really bothering her. * Telephone Encounter - Lisa Curiel - 12/13/2024 8:49 AM EDT Please fax a copy of her dermatology referral to [phone]. Also, her neurologist Dr. Perdue is not in her network and she has requested another neurologistby the name of Dr. Quezada who is in network. documented in this encounter Plan of Treatment Upcoming Encounters Date Type Department Care Team (Late st Contact Info) Description 08/12/2025 3:20 PM EST Office Visit [address] [phone] Estrellita Mckeon NP [address] [place] [address] 08/30/2025 10:00 AM EST Office Visit [address] [phone] Estrellita Mckeon NP [address] [place] [address] documented as of this encounter Visit Diagnoses Not on filedocumented in this encounter Care Teams Mental Health Specialist Relationship Specialty Start Date End Date Estrellita Mckeon NP [address] [place] [address] PCP - General Family Medicine 09/16/23 Yuki Bull [address] [place] [address] 04/16/23 Dr Pippa Lowry [place]-office Meghan [phone] Consulting Physician Neurosurgery 04/11/23 documented as of this encounter
--- OUTSIDE RECORDS SUMMARY | 2025-07-18 19:48 | XMS_ITS | Encounter Summary ---
Author Organization [employer] Address 75 [facility] 7 [place] [address] Care Team Providers Care Embalmer Apprentice Name Role Phone Yuki Bull Unavailable Estrellita Mckeon NP Primary Care Provider Encounter Details Date Type Department Care Team ([facility] st Contact Info) Description 02/23/2025 Telephone [facility] [address] [place] [address] Estrellita Mckeon NP 102 [place], [place] [phone] Social History Tobacco Use Types Packs/Day Years [...] the past 12 months, has t he [employer], gas, oil or water [employer] threatened to shut off services in your [...] encounter Miscellaneous Notes * Telephone Encounter - Madhavi Ding MA - 02/23/2025 10:17 AM EDT Duplicate task * Telephone Encounter - Lisa Curiel - 02/23/2025 10:06 AM EDT Please call regarding some testing that Leo Cortez's office is requesting prior to her seeing them.Please advise patient [phone] documented in this encounter Plan of Treatment Upcoming Encounters Date Type Department Care Team (Late st Contact Info) Description 08/12/2025 3:20 PM EST Office Visit [place] [phone] Estrellita Mckeon NP [address] [place] [address] 08/30/2025 10:00 AM EST Office Visit [address] [phone] Estrellita Mckeon NP [address] [place] [address] documented as of this encounter Visit Diagnoses Not on filedocumented in this encounter Care Teams Embalmer Apprentice Relationship Specialty Start Date End Date Estrellita Mckeon NP [address] [place] [address] PCP - General Family Medicine 09/16/23 Yuki Bull [address] [place] [address] 04/16/23 Dr Pippa Hernandez [facility]-office Meghan [phone] Consulting Physician Neurosurgery 04/11/23 documented as of this encounter
--- OUTSIDE RECORDS SUMMARY | 2025-07-18 19:48 | XMS_ITS | Encounter Summary ---
Author Organization [employer] Address [address] [place] [address] Care Team Providers Care Coffee Shop Attendant Name Role Phone Yuki Bull Unavailable Estrellita Mckeon NP Primary Care Provider [phone] Reason for Referral * Consultation (Routine) - Authorized Specialty Diagnoses / Procedures Referred By Contbella t Referred To Contact Gastroenterology Diagnoses Ulcerative colitis with rectal bleeding, unspecified location (CMS/HCC) (HCC) Estrellita Mckeon NP [address] [place] [address] Phone: tel: fax: [facility] [address] [place], [place] Phone: tel: fax: Referral ID Status Reason Start Date Expiration Date Visits Requested Visits Authorized [id number] Authorized Specialty Services Required 5 07/13/2026 1 1 Encounter Details Date Type Department Care Team (Late st Contact Info) Description 07/12/2025 Telephone [facility] [address] [place] [phone] Estrellita Mckeon NP [address] [place] [address] Social History Tobacco Use Types Packs/Day Years [...] * Telephone Encounter - Latha Clemens - 07/14/2025 11:10 AM EST Spoke to patient, she is okay with [facility] * Telephone Encounter - Latha Clemens - 07/13/2025 4:04 PM EST Called patient and left detailed message stating that I am unable to send her [facility] dueto insurance- I let her know what her options were and asked for a call back to discuss- referral pending * Telephone Encounter - Itaol Lewis - 07/12/2025 2:53 PM EST Pt would like to establish with a new GI dr, would you be willing to create an order or would you like to see the pt for an appointment to discuss? * Telephone Encounter - Sundar Tyson - 07/12/2025 2:42 PM EST Patient is calling because she doesn't have transportation to her GI Dr who is located at [facility] and is asking us to change the GI Dr. on her referral to somewhere closer to [facility]. documented in this encounter Plan of Treatment Upcoming Encounters Date Type Department Care Team (Late st Contact Info) Description 08/12/2025 3:20 PM EST Office Visit [address] [phone] Estrellita Mckeon NP [address] [place] [address] 08/30/2025 10:00 AM EST Office Visit [address] [phone] Estrellita Mckeon NP [address] [place] [address] Scheduled Referrals Name Type Priority Associated Diagnoses Order Schedule Referral to Gastroenterology Outpatient Referral Routine Ulcerative colitis with rectal bleeding, unspecified location (CMS/HCC) (HCC) Expected: 07/13/2025 (Approximate), Expires: 07/13/2026 documented as of this encounter Visit Diagnoses Diagnosis Ulcerative colitis with rectal bleeding, unspecified location (CMS/HCC) (HCC)- Primary documented in this encounter Care Teams Coffee Shop Attendant Relationship Specialty Start Date End Date Estrellita Mckeon NP [address] [place] [address] PCP - General Family Medicine 09/16/23 Yuki Bull [address] [place] [address] 04/16/23 Dr Pippa Lowry [place]-office Meghan [phone] Consulting Physician Neurosurgery 04/11/23 documented as of this encounter
--- OUTSIDE RECORDS SUMMARY | 2025-07-18 19:48 | XMS_ITS | Encounter Summary ---
Author Organization [employer] Address [address] [facility] 7 [place] [address] Care Team Providers Care Ep Technologist Name Role Phone Yuki Bull Unavailable Delfina Ray Unavailable Estrellita Mckeon NP Primary Care Provider [phone] Encounter Details Date Type Department Care Team (Late st Contact Info) Description 12/12/2023 Telephone [facility] [address] [place] [address] Estrellita Mckeon NP [address] [place], [place] [phone] Social History Tobacco Use Types Packs/Day Years [...] the past 12 months, has t he [employer], gas, oil or water [employer] threatened to shut off services in your home? No 06/17/2023 Depression Answer Date Recorded Patient Health Questionnaire-2 Score 0 08/14/2023 Comments Unknown Sex and Gender Information Value Date Recorded Sex Assigned at Female 08/14/2022 1:49 PM EST Legal Sex Female 6:23 PM EDT Gender Identity Female 06/21/2022 6:23 PM EDT Sexual Orientation Straight 06/21/2022 6: 23 PM EDT documented as of this encounter Miscellaneous Notes * Telephone Encounter - Nany Serrano - 12/12/2023 3:36 PM EDT Faxed * Telephone Encounter - Lisa Curiel - 12/12/2023 3:28 PM EDT Needs the order for the knee xray sent to [phone]. She is at the hospital to have that done documented in this encounter Plan of Treatment Upcoming Encounters Date Type Department Care Team (Late st Contact Info) Description 08/12/2025 3:20 PM EST Office Visit [address] [phone] Estrellita Mckeon NP [address] [place] [address] 08/30/2025 10:00 AM EST Office Visit [address] [phone] Estrellita Mckeon NP [address] [place] [phone] documented as of this encounter Visit Diagnoses Not on filedocumented in this encounter Care Teams Ep Technologist Relationship Specialty Start Date End Date Estrellita Mckeon NP [address] [place] [address] PCP - General Family Medicine 09/16/23 Yuki Bull [address] [place] [address] 04/16/23 Delfina Ray [address] [place] [address] 06/23/23 03/09/24 Dr Pippa Hernandez [facility]-office Meghan [phone] Consulting Physician Neurosurgery 04/11/23 documented as of this encounter
--- OUTSIDE RECORDS SUMMARY | 2025-07-18 19:48 | XMS_ITS | Encounter Summary ---
Author Organization [employer] Address [address] [facility] 7 [place] [address] Care Team Providers Care Maintenance Helper Name Role Phone Yuki Bull Unavailable Estrellita Mckeon NP Primary Care Provider [phone] Encounter Details Date Type Department Care Team ([facility] st Contact Info) Description 11/30/2024 Telephone [facility] [address] [place] [address] Estrellita Mckeon NP [address] [place], [place] [phone] Social History Tobacco Use Types Packs/Day Years [...] the past 12 months, has t he [employer], gas, oil or water [employer] threatened to shut off services in your [...] * Telephone Encounter - Latha Clemens - 12/30/2024 12:02 PM EDT refaxed * Telephone Encounter - Lisa Curiel - 11/30/2024 12:39 PM EDT Please send the referral to the dermatolgist again, they do not have it. documented in this encounter Plan of Treatment Upcoming Encounters Date Type Department Care Team (Late st Contact Info) Description 08/12/2025 3:20 PM EST Office Visit [address] [phone] Estrellita Mckeon NP [address] [place] [address] 08/30/2025 10:00 AM EST Office Visit [address] [phone] Estrellita Mckeon NP [address] [place] [address] documented as of this encounter Visit Diagnoses Not on filedocumented in this encounter Care Teams Maintenance Helper Relationship Specialty Start Date End Date Estrellita Mckeon NP [address] [place] [address] PCP - General Family Medicine 09/16/23 Yuki Bull [address] [place] [address] 04/16/23 Dr Pippa Hernandez [facility]-office Meghan [phone] Consulting Physician Neurosurgery 04/11/23 documented as of this encounter
--- OUTSIDE RECORDS SUMMARY | 2025-07-18 19:48 | XMS_ITS | Encounter Summary ---
Author Organization [employer] Address [address] [facility] 7 [place] [address] Care Team Providers Care Cnmt Name Role Phone Yuki Bull Unavailable Estrellita Mckeon NP Primary Care Provider [phone] Encounter Details Date Type Department Care Team ([facility] st Contact Info) Description 11/30/2024 Telephone [facility] [address] [place] [address] Estrellita Mckeon NP [address] [place], [place] [phone] Social History Tobacco Use Types Packs/Day Years [...] the past 12 months, has t he [employer] gas, oil or water [employer] threatened to shut off services in your [...] encounter Miscellaneous Notes * Telephone Encounter - Easton Mckee [place] - 12/16/2024 10:11 AM EDT FYI: Delivered 12/14/24 * Telephone Encounter - Easton Mckee [place] - 12/03/2024 11:09 AM EDT Order sent to [facility], waiting on response for an update. * Telephone Encounter - Easton Mckee [place] - 12/02/2024 11:25 AM EDT Copied from a note from Estrellita: The 's office [employer] could likely supply her with a walker if she has no insurance coverage for it. The number over there is [phone]. * Telephone Encounter - Easton Mckee [place] - 12/01/2024 9:57 AM EDT Reached out via portal with no response. Will call later to inform her the supplier cannot find a company that takes her insurance. * Telephone Encounter - Lisa Curiel - 11/30/2024 12:39 PM EDT Please call her and give her an update on the request for the walker. [phone] documented in this encounter Plan of Treatment Upcoming Encounters Date Type Department Care Team ([facility] st Contact Info) Description 08/12/2025 3:20 PM EST Office Visit [address] [phone] Estrellita Mckeon NP [address] [place] [address] 08/30/2025 10:00 AM EST Office Visit [address] [phone] Estrellita Mckeon NP [address] [place] [address] documented as of this encounter Visit Diagnoses Not on filedocumented in this encounter Care Teams Cnmt Relationship Specialty Start Date End Date Estrellita Mckeon NP [facility] [place] [address] PCP - General Family Medicine 09/16/23 Yuki Bull [address] [place] [address] 04/16/23 Dr Pippa Hernandez [phone] Consulting Physician Neurosurgery 04/11/23 documented as of this encounter
--- OUTSIDE RECORDS SUMMARY | 2025-07-18 19:48 | XMS_ITS | Data Portability ---
Author Organization [place] - [facility], Allergy Address [address] [address] Care Team Providers Care Fondant Cooker Name Role Phone OSCAR MEMBRENO Primary Care Provider [phone] Assessment Encounter Date Assessment Date Assessment LastModified by Organization Details LastModified Time 02/16/2024 02/16/2024 Patient presents for allergy testing. Has been taking zyrtec until yesterday. PFT performed and cleared by Dr. De La Rosa. Patient rescheduled to 03/01/2024. Medication restriction sheet given. Patient knows to hold zyrtec 5 days prior to allergy testing. [email or web address] Not available 02/16/2024 11:28:00 04/21/2024 04/21/2024 Discussed various types, models and levels of technology. She has decided to stay in network because of finances. A copy of her HT was given. F/U PRN. [email or web address] Not available 04/21/2024 15:15:02 Plan of Treatment Reminders Order Date Submit Date Provider Last Modified By Organization Details Last Modified Time Details Appointments None recorded. Lab None recorded. Referral None recorded. Procedures allergy testing, skin prick (PROC) 2023 024 [email or web address] Not available 4 15:01:06 intradermal allergy skin testing (PROC) 2023 024 [email or web address] Not available 4 15:01:29 pulmonary function test procedure (PROC) 2023 024 [email or web address] Not available 15:01:20 pulse oximetry (PROC) 2023 024 [email or web address] Not available 15:01:39 Surgeries None recorded. Imaging None recorded. Medication Orders None recorded. Patient TargetsNo targets recorded. Patient Instructions Encounter Date Encounter Id Patient Instructions Last Modified By Organization Details Last Modified Time 03/01/2024 [id number] Nursing Documentation for Allergy Testing: Ordering Provider Dr. Brown Weight:lbs: kg: PFT Yes With Bronchodilator no approval needed to proceed with allergy testing? Yes Dr. De La Rosa ok'd testing YesHistory of Asthma:No Asthma Meds: Last used: Asthma exacerbated by: Chance that : N/A Fear of needles: No Regular medications reviewed in Computer: Yes Medication allergies: Reviewed Antihistamine use: No Medications used: Food Allergies: no Any foods make your mouth feeling itchy: No If yes: History of severe reaction where had to go to ER? No If yes details: Type of heat in home: Forced Air Pets: Yes If yes: cat, rabbit Smoker: Former If former smoker-how much 1/pack a day day for how long 20 When quit 1992 years ago Smoking now-how much /day for how long Occupation/Social History: retired Symptoms having: If other: sinus infection, ears blocked Frequency Year Round Spirometry Contraindications: Heart attack in the last 3 months: No Major surgery in last 3 months: No Detached retina(serious eye issues) in last 2 months: No Hospitilization in last month: No Proceed with PFT Yes approval needed: Yes Nursing Notes: Pt tolerated test well Yes Benadryl cream to test sites Yes Patient became syncopal-placed in supine position No Large reactions to MQT, reschedule IDT for a different date No Other: Written by: Mai Acuña [email or web address] Not available 03/01/2024 11:16:21 Reason for Referral None Reported. Results Created Date Observation Date Name Description Value Unit Range Abnormal Flag Note LastModifiedBy Organization Detail LastModifiedTime 01/30/20 24 audio gram No observ ation record ed. BARCODE Not Available 2023 16:36:04 Result Notes None recorded. Problems Name Problem SNOMED Code Status Onset Date Resolution Date Notes Provider Name and Address Organization Details Recorded Time Sensorineur al hearing loss of bilateral ears 557854629 Active 2023 LAMONT Bailey MD [address] [place] [address] [place], [address], [facility] - [facility] 4 11:20:48 Bilateral tinnitus 8863125313896 Active 2023 LAMONT Bailey MD [address], [address], [facility] - [facility] 4 11:21:30 Anterior epistaxis 032771634 Active 2023 LAMONT Bailey MD [address] [address], [place], [address], [facility] - [facility] 4 11:23:41 Allergic rhinitis 09721405 Active 2023 LAMONT Bailey MD [address] [place] [address], [place], [address], [facility] - [facility] 4 11:29:16 Non-allergi c rhinitis 644192081764 Active 2023 LAMONT Bailey MD [address] [address], [place], [address], [facility] - [facility] 11:29:43 Seasonal allergic rhinitis 242857748 Active 2023 LAMONT Bailey MD [address] [address], [place], [address], [facility] - [facility] 4 11:29:43 Problem Notes None recorded. Procedures Surgical History Date Name Laterality Status Provider Name and Address Organization Details Recorded Time 03/01/20 24 Allergy Testing-Full completed ROBER SMALLS 100 [facility],[address], [address], [facility] 03/01/2024 11:40:43 01/30/20 24 Comp Audio with Tymps - 54075 & 07322 completed Ze SNOW 100 [facility],[address] [address], [place], [address], [facility] - [facility] 01/30/2024 10:51:24 operative procedure on knee completed Asad Diego [facility] 01/30/2024 10:53:00 procedure on gallbladder completed Asad Diego [facility] 01/30/2024 10:53:59 repair of stress incontinence by suprapubic sling completed Asad Diego [facility] 01/30/2024 10:54:26 Imaging Results None recorded. Procedure Notes None recorded. Medical Equipment None Reported. Allergies Allergen ID Allergen Name Allergen Category Reaction Reaction Severity Criticality Documentation Date Start Date Code Code System Note Provider Name and Address Organization Details Recorded Time 580031 Product containin g penicilli n (product) medicatio n Not available Not available Not available 02/16/2024 43725 8001 SNOMED MANA WALDRON RN [address] [address], [place], [address], [facility] 4 10:57:20 777492 aspirin medicatio n vomiting Not available Not available 02/16/20241974 1191 RxNorm MANA WALDRON RN [address] [address], [place], [address], [facility] 4 10:58:35 Medications Name Sig Start Date Stop Date Status Note LastModified by Organization Details LastModified Time levetiraceta m 500 mg tablet TAKE 1/2 TABLET BY MOUTH TWICE DAILY FOR 7 DAYS THEN INCREASE TO 1 TABLET TWICE DAILY THEREAFTER active Not Available Not Available N ot Available alendronate 70 mg tablet TAKE ONE TABLET BY MOUTH ONCE A WEEK active Not Available Not Available No t Available clopidogrel 75 mg tablet active Not Available Not Available Not Available levothyroxin e 88 mcg tablet active Not Available Not Available Not Available pantoprazole 40 mg tablet,delay ed release active Not Available Not Available N ot Available divalproex ER 500 mg tablet,exten ded release 24 hr TAKE 1 TABLET BY MOUTH AT BEDTIME active Not Available Not Available No t Available lisinopril 30 mg tablet active Not Available Not Available Not Available gabapentin 300 mg capsule TAKE 1 CAPSULE BY MOUTH EVERY NIGHT AT BEDTIME active Not Available Not Available No t Available triamterene 37.5 mg-hydrochlo rothiazide 25 mg tablet TAKE 1 TABLET BY MOUTH IN THE MORNING active Not Available Not Available Not Available montelukast 10 mg tablet active Not Available Not Available Not Available mupirocin 2 % topical ointment APPLY TOPICALLY TO THE AFFECTED AREA THREE TIMES DAILY active Not Available Not Available Not Available gabapentin 100 mg capsule active Not Available Not Available Not Available divalproex ER 250 mg tablet,exten ded release 24 hr TAKE 1 TABLET BY MOUTH EVERY NIGHT AT BEDTIME active Not Available Not Available No t Available duloxetine 60 mg capsule,breanna yed release active Not Available Not Available Not Available Vitals Date Recorded Body height Body mass index (BMI) Body weight Provider Name and Address Organization Details Last Updated DateTime 01/30/2024 154.94 cm 29.3 kg/m2 65188.82 g Asad Diego [facility] 01/30/2024 11:16:30 Date Recorded Body height Oxygen saturation Heart rate Systolic And Diastolic Provider Name and Address Organization Details Last Updated DateTime 02/16/2024 154.94 cm 97 % 88 /min 125/74 mm[Hg] MANA WALDRON RN 100 [facility] 100, [facility], [address] , [facility] 02/16/2024 11:25:24 Date Recorded Body height Oxygen saturation Heart rate Systolic And Diastolic Provider Name and Address Organization Details Last Updated DateTime 03/01/2024 154.94 cm 98 % 83 /min 133/76 mm[Hg] ROBER SMALLS 100 [facility] 100, [facility] [place], [address] , [facility] 03/01/2024 10:41:33 Date Recorded Body height Body mass index (BMI) Body weight Provider Name and Address Organization Details Last Updated DateTime 03/26/2024 154.94 cm 29.3 kg/m2 92584.82 g Asad Diego [facility] 03/26/2024 10:20:35 Social History None recorded. Functional Status None recorded. Mental Status None recorded. Family History Nothing Reported. Medical History No medical history recorded. Gynecological HistoryNo gynecological history recorded. Obstetrics History GPAL:G 0 P 0 0 0 0 Past Encounters Encounter ID Performer Location Encounter Start Date Encounter Closed Date Diagnosis/Indication Diagnosis SNOMED-CT Code Diagnosis ICD10 Code Diagnosis IMO Codes Diagnosis Note [id number] LAMONT BROWN MD [facility] on [address] [place] [address] 01/30/2024 09:52:50 01/30/2024 11:34:47 Sensorineural hearing loss of bilateral ears 581788269 H90.3 Audiologic al evaluation results:Ri ght ear:Mild sloping to severe high frequency sensorineu ral hearing loss with excellent word recognitio n.Left ear:Mild sloping to severe high frequency sensorineu ral hearing loss with excellent word recognitio n. Tympanomet ry:Right Ear:Type ALeft Ear:Type A Recommenda tions:Ampl ification, pending medical clearance. Patient's audiogram shows bilateral severe sensorineu ral hearing loss with well maintained speech discrimina tion. There is enough hearing loss to affect day-to-day hearing performanc e. We discussed in detail the pros and cons of amplificat ion (hearing aids). Patient would like to learn more about this option so . Patient is medically cleared for amplificat ion bilaterall y. Bilateral tinnitus 39372 80770 102 H93.13 Ear exam was normal. Audiogram was reviewed. We discussed the associatio n between sensorineu ral hearing loss and tinnitus. We discussed masking for tinnitus. Anterior epistaxis 41729 4002 R04.0 No active bleeding was seen on exam. Nasal cautery was deferred. We discussed the importance of nasal moisture preventing nosebleeds . Specifical ly we discussed using a saline spray daily, humidifier , and using vaseline with a finger at night applied to the septum. If there is an active bleed, I recommende d using Afrin and demonstrat ed applying pressure to the soft part of the nose. The patient understand s to not use Afrin if he does not have an active bleed. If there is continued bleeding I asked the patient to call and we will consider nasal cautery at follow up. Allergic rhinitis 883020 04 J30.9 Exam and history are consistent with allergic rhinitis. We will obtain allergy testing to clarify the extent of allergy with f/u to review. Non-allergic rhinitis 31 60756950 01 J31.0 Seasonal a llergic rhinitis 465087513 J30.2 [id number] MANA WALDRON RN Allergy 100 [facility],[place] 100 [place] [address] 02/16/2024 10:44:33 02/16/2024 11:33:39 Allergic rhinitis 70181368 J30.9 [id number] ROBER SMALLS Allergy 100 [facility], [address] 100 [place] [address] 03/01/2024 10:10:36 03/02/2024 14:36:00 Allergic rhinitis 57481525 J30.9 [id number] LAMONT BROWN MD [facility] on [address] [place] [address] 03/26/2024 10:15:50 03/26/2024 13:01:15 Allergic rhinitis 44320403 J30.9 Exam and history are consistent with allergic rhinitis. Allergy testing showed mild to moderate allergies. We discussed immunother apy but agreed to defer. I discussed a local referral to an layout man in [place] but she was not interested . She will continue to use zyrtec and montelukas t. She may f/u as needed. [id number] HERMAN AKERS, ZE [place] - No [address] [place] [address], [place] [address] 04/21/2024 14:22:50 04/21/2024 15:19:57 Sensorineural hearing loss of bilateral ears 616221384 H90.3 Health Concerns Section Related Observation LastModified by Organization Detai ls LastModified Time None Recorded Concern Status LastModified by Organization Details LastModified Time None Recorded Advance Directives Directive None Recorded Payers Insurance Date Sequence Insurance Name Policy Number Policy Canales Covered Member ID Canales Member ID Guarantor Name 04/18/2024 1 [facility] (MEDICARE REPLACEMENT/ ADVANTAGE - HMO) [id number] Amanda Gipson [id number] Amanda Gipson Notes Date Note Type Note Provider Name and Address Organization Details Recorded Time 01/30/2024 text/html ROS as noted in the HPI She reports gradual hearing loss for years. She does have a history of CVA. She has bilateral tinnitus. She has nasal congestion as well. She takes montelukast. She has reports nasal congestion and rhinorrhea. She has occasional epistaxis on the right. She is on plavix. She does not moisturize her nose. LAMONT BROWN MD 100 [facility],[address], [address], [facility] - [facility] 01/30/2024 11:30:27 03/26/2024 text/html ROS as noted in the HPI Hx of nasal congestion. Allergy testing showed allergies to weeds, mold, and cats. She does not drive and feels SLIT would be too expensive. she does have cats. LAMONT BROWN MD 100 [facility],[address], [address], [facility] 03/26/2024 10:36:31 04/21/2024 text/html Patient has a known bilateral SNHL. She is a potential hearing aid candidate. Patient has [facility] hearing aid benefit - we are out of network. She must remain in network to access her benefit. HERMAN AKERS, ZE 100 [facility],[address] [address], [place], [address], [facility] 04/21/2024 15:15:25 OBGyn Episode No OBEpisode recorded.
--- OUTSIDE RECORDS SUMMARY | 2025-07-18 19:48 | XMS_ITS | Encounter Summary ---
Author Organization [employer] Address 75 [facility] 7 [place] [address] Care Team Providers Care Napper Runner Name Role Phone Yuki Bull Unavailable Estrellita Mckeon NP Primary Care Provider [phone] Encounter Details Date Type Department Care Team ([facility] st Contact Info) Description 07/12/[address] [address] Estrellita Mckeon NP [address] [place] [address] Social History Tobacco Use Types Packs/Day Years [...] with others, in a hotel, in a half-way, living outside on the street, on a [...] Telephone Encounter - Easton Mckee MA - 07/12/2025 3:29 PM EST Sent patient a message to inform her she will need to call the office of the doctor who prescribes it in order to get a prior auth renewed. We do not prescribe it here for her. * Telephone Encounter - Suzi Gaticashirley - 07/12/2025 2:58 PM EST Pt called in regards to medication for Humira, Pt received a letter about renewing prior authorization, please advise [phone] documented in this encounter Plan of Treatment Upcoming Encounters Date Type Department Care Team (Late st Contact Info) Description 08/12/2025 3:20 PM EST Office Visit [address] [phone] Estrellita Mckeon NP [address] [place] [address] 08/30/2025 10:00 AM EST Office Visit [address] [phone] Estrellita Mckeon NP [address] [place] [address] documented as of this encounter Visit Diagnoses Not on filedocumented in this encounter Care Teams Napper Runner Relationship Specialty Start Date End Date Estrellita Mckeon NP [address] [place] [address] PCP - General Family Medicine 09/16/23 Yuki Bull [address] [place] [address] 04/16/23 Dr Pippa Hernandez [facility]-office Meghan [phone] Consulting Physician Neurosurgery 04/11/23 documented as of this encounter
--- OUTSIDE RECORDS SUMMARY | 2025-07-18 19:48 | XMS_ITS | Encounter Summary ---
Author Organization [employer] Address 75 [facility] 7 [place] [address] Care Team Providers Care Library Technology Instructor Name Role Phone Yuki Bull Unavailable Estrellita Mckeon NP Primary Care Provider [phone] Encounter Details Date Type Department Care Team ([facility] st Contact Info) Description 06/22/[address] [address] Estrellita Mckeon NP [address] [place] [address] Social History Tobacco Use Types Packs/Day Years [...] encounter Miscellaneous Notes * Telephone Encounter - Suzi Romeo - 06/27/2025 2:51 PM EST Pt called and would like to obtain copies of Pt medical chart including any all of imaging from [facility]. 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 Please advise [phone] * Telephone Encounter - Angelica Arguelles - 06/22/2025 2:40 PM EDT The patient called and said that they would like their medical records tp be added to Power share upload for the patients urologist dr mcdonald. [phone] documented in this encounter Plan of Treatment Upcoming Encounters Date Type Department Care Team (Late st Contact Info) Description 08/12/2025 3:20 PM EST Office Visit [address] [phone] Estrellita Mckeon NP [address] [place] [address] 08/30/2025 10:00 AM EST Office Visit [address] [phone] Estrellita Mckeon NP [address] [place] [address] documented as of this encounter Visit Diagnoses Not on filedocumented in this encounter Care Teams Library Technology Instructor Relationship Specialty Start Date End Date Estrellita Mckeon NP [address] [place] [address] PCP - General Family Medicine 09/16/23 Yuki Bull [address] [place] [address] 04/16/23 Dr Pippa Hernandez [facility]-office Meghan [phone] Consulting Physician Neurosurgery 04/11/23 documented as of this encounter
--- OUTSIDE RECORDS SUMMARY | 2025-07-18 19:48 | XMS_ITS | Encounter Summary ---
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 No / Unsure 08/14/2022 1:21 PM EST documented as of this encounter Plan of Treatment Upcoming Encounters Date Type Department Care Team (Late Contact Info) Description 08/12/2025 3:20 PM EST Office Visit [address] [address] Estrellita Mckeon NP [address] [place] [address] 08/30/2025 10:00 AM EST Office Visit [address] [phone] Estrellita Mckeon NP [address] [place] [phone] documented as of this encounter Visit Diagnoses Diagnosis Acute seborrheic dermatitis- Primary documented in this encounter Care Teams Sweeper Cleaner Industrial Relationship Specialty Start Date End Date Gerda Morillo FNP PCP - General Family Medicine 06/21/22 09/15/23 Estrellita Mckeon NP [address] [place] [address] PCP - General Family Medicine 09/16/23 Gerda Morillo FNP Family Medicine 06/21/22 04/20/23 Yuki Bull [address] [place] [address] 04/16/23 Delfina Ray [address] [place] [address] 06/23/23 03/09/24 Dr Pippa [facility]office Meghan [phone] Consulting Physician Neurosurgery 04/11/23 documented as of this encounter
== END 2025-07-18 15:00 | disposition home or self-care (01) ==
LOC: HO.NEURO 14:59
PROVIDERS: PCP Nurse Practitioner Family; Visit Provider Psychiatry & Neurology Neurology
DX: G43.009 Migraine without aura, not intractable, without status migrainosus (principal); G40.909 Epilepsy, unspecified, not intractable, without status epilepticus
CPT/HCPCS: 95816

== ENCOUNTER → 2025-07-18 17:14 | Outpatient (BNV) | payer MEDICARE, SELFPAY | PROVIDERS: PCP Nurse Practitioner Family; Visit Provider Psychiatry & Neurology Neurology | DX: G40.909 Epilepsy, unspecified, not intractable, without status epilepticus (principal) | CPT/HCPCS: 95816 ==